=== PATIENT | female | born 1950 | race Caucasian/White ===

== ENCOUNTER 2018-02-25 11:57 | Inpatient (IN) | payer MEDICARE, OTHER ==
[~2018-02-25] VITALS: Ht 154.9 cm; Wt 77.2 kg
[~2018-02-25 11:57] MED LIST: ARIP2TAB3 INH; BLOO-538 SQ; CETI10TA14 PO; DOCU250C14 PO; FLUO15OI TP; FLUT1DIS3 PO; GLYB-214 PO; IBUP-1955 PO; INSU100V7 SQ; LISI1TAB13 PO; MONTELUKAST SOD 10 MG TAB PO; PRAV40TA3 PO; RANI150T8 PO; ZOLP10TA6 PO
--- NOTE | 2018-02-25 12:00 | NUR ---
PT BBRA 39 FROM HOME: GENERALIZED WEAKNESS SINCE THIS AM, PT IS AAOX4, NOT IN RESPIRATORY DISTRESS, BP IS ELAVATED 175/77 DR. DELUCA AWARE, KEPT RESTED AND COMFORTABLE, WILL CONTINUE TO MONITOR.
--- NOTE | 2018-02-25 12:15 | NUR ---
LABS DRAWNED AND SENT TO LAB. AWAITING RESULTS.
[2018-02-25 12:26] LABS: BASOPHILS % (AUTO) 0.6 % (0.0-2.0); EOSINOPHILS % (AUTO) 0.7 % (0.0-6.0); HEMATOCRIT 37 % (33-45); HEMOGLOBIN 12.9 g/dL (11.5-14.8); LYMPHOCYTES # (AUTO) 1.2 /CMM (0.8-4.8); LYMPHOCYTES % (AUTO) 18.8 % (20.0-44.0); MEAN CORPUSCULAR HGB CONC 35 g/dl (31.0-36.0); MEAN CORPUSCULAR VOLUME 86 fL (82-100); MONOCYTES # (AUTO) 0.6 /CMM (0.1-1.30); MONOCYTES % (AUTO) 9.1 % (2.0-12.0); NEUTROPHILS # (AUTO) 4.7 /CMM (1.8-8.9); NEUTROPHILS % (AUTO) 70.8 % (43.0-81.0); PLATELET COUNT (AUTO) 212 /CMM (150-450); WHITE BLOOD COUNT (AUTO) 6.6 K/uL (4.3-11.0)
[2018-02-25] MEDS ORDERED: IV NS 0.9% 500 ML BAG IV ONE (12:30)
[2018-02-25 12:37] LABS: CALCIUM, SERUM 9.1 mg/dL (8.5-10.1); CARBON DIOXIDE 30 mmol/L (21-32); CHLORIDE 105 mmol/L (98-107); CREATININE 0.7 mg/dL (0.6-1.3); GLUCOSE 176 mg/dL (74-106); POTASSIUM 3.2 mmol/L (3.5-5.1); SODIUM SERUM 143 mmol/L (136-145); UREA NITROGEN, BLOOD 13 mg/dL (7-18)
[2018-02-25 12:39] LABS: SERUM AMMONIA 23 umol/L (11-32)
--- NOTE | 2018-02-25 12:41 | NUR ---
PT IS WHEELD TO CT SCAN [facility].
--- NOTE | 2018-02-25 12:41 | NUR ---
URINE SPECIMEN COLLECTED VIA STRAIGHT CATH AND SENT TO LAB.
[2018-02-25 12:43] LABS: ALANINE AMINOTRANSFERASE 43 U/L (12-78); ALBUMIN 3.9 g/dL (3.4-5.0); ALKALINE PHOSPHATASE 97 U/L (46-116); ASPARTATE AMINOTRANSFERASE 19 U/L (15-37); BILIRUBIN,DIRECT 0.2 mg/dL (0.0-0.2); BILIRUBIN,TOTAL 0.8 mg/dL (0.2-1.0); TOTAL PROTEIN, SERUM 7.1 g/dL (6.4-8.2)
[2018-02-25 12:44] LABS: ALCOHOL, BLOOD < 3 mg/dL (0-0)
[2018-02-25 12:44] LABS: APPEARANCE,URINE Slightly Cloudy (CLEAR); BILIRUBIN,URINE Negative (NEGATIVE); BLOOD, URINE Moderate Ery/uL (NEGATIVE); KETONES,URINE Negative (NEGATIVE); LEUKOCYTE ESTERASE ,URINE Negative (NEGATIVE); NITRITE, URINE Negative (NEGATIVE); PROTEIN,URINE Negative (NEGATIVE); UGLUCOSE Negative (NEGATIVE)
[2018-02-25 12:46] LABS: COLOR,URINE Yellow (YELLOW)
[2018-02-25 12:49] LABS: BACTERIA,URINE Few /HPF (None Seen); RBC,URINE 50-80 /HPF (0-2); SQUAMOUS EPITHELIAL CELL,UR Few /HPF (None Seen); URINE AMORPHOUS PHOSPHATES Few /HPF (None Seen); WBC,URINE 0-3 /HPF (0-3)
--- NOTE | 2018-02-25 12:55 | NUR ---
PT IS BACK FROM THE CT SCAN. AWAITING RESULT.
--- NOTE | 2018-02-25 13:46 | NUR ---
PAGED DR CHUNG
--- NOTE | 2018-02-25 15:09 | NUR ---
ROOM CHANGED TO 328-1 M/S
[2018-02-25 16:00] VITALS: BP 174/83
--- NOTE | 2018-02-25 16:01 | NUR ---
REPORT GIVEN TO ARNOLD HARMON FOR JEREMY.
--- NOTE | 2018-02-25 16:15 | NUR ---
MS OUTREACH COORDINATOR NOTE RECEIVED PATIENT VIA GURNEY FROM ER. PATIENT WAS BROUGHT IN DUE TO GENERALIZED WEAKNESS. ALERT AND ORIENTED x2-3 AZERBAIJANI SPEAKING FAMILY AT BEDSIDE. LAST BOWEL MOVEMENT 3 DAYS AGO PER FAMILY. RIGHT HAND IV INTACT AND PATENT NO REDNESS OR SWELLING NOTED. ABLE TO COMMUNICATE NEEDS. CALL LIGHT WITHIN REACH. SAFETY MEASURES IMPLEMENTED. SIDERAILS UP X2 FOR SAFETY. NKA. FULL CODE NO ISOLATION. AWAITING MD ORDERS AT THIS TIME. NOTED WITH SACRAL REDNESS, PHOTO TO BE TAKEN AND PLACED IN CHART. NO FACIAL GRIMACING NOTED FOR PAIN. NO SOB OR DISTRESS NOTED ON ROOM AIR TOLERATING WELL. WILL CONTINUE TO MONITOR THROUGHOUT SHIFT
[2018-02-25] MEDS ORDERED: *INSULIN REGULAR(HUMULIN R)HUM 100 UNIT/ML VIAL SQ PRN (17:30)
[2018-02-25] MEDS ORDERED: Z GUARD REMEDY 2 OZ OINT TP PRN (17:30)
[2018-02-25] MEDS ORDERED: ZOLPIDEM TARTRATE 5 MG TABLET PO PRN (17:30)
[2018-02-25] MEDS ORDERED: ACETAMINOPHEN 325 MG TABLET PO PRN (17:30)
[2018-02-25] MEDS ORDERED: HYDROCODONE/APAP 5/325MG 1 EACH TABLET PO PRN (17:30)
[2018-02-25] MEDS ORDERED: MAG HYDROX/AL HYDROX/SIMETH 30 ML UDC PO PRN (17:30)
[2018-02-25] MEDS ORDERED: DEXTROSE 50%-WATER 50 ML DISP.SYRIN IV PRN (17:30)
[2018-02-25] MEDS ORDERED: MAGNESIUM HYDROXIDE 30 ML UDC PO PRN (17:30)
[2018-02-25] MEDS ORDERED: ONDANSETRON HCL/PF 4 MG/2 ML VIAL IVP PRN (17:30)
[2018-02-25] MEDS: BLOOD SUGAR DIAGNOSTIC 1 EACH STRIP VI SCH ×2 (17:40→21:53)
[2018-02-25] MEDS: IV NS 0.9% 1,000 ML IV PRN (17:42)
--- NOTE | 2018-02-25 18:56 | NUR ---
RN CLOSING NOTE PATIENT RESTING COMFORTABLY AT THIS TIME. NO FACIAL GRIMACING NOTED FOR PAIN. CALL LIGHT WITHIN REACH AT ALL TIMES. NO SOB OR DISTRESS NOTED ON ROOM AIR TOLERATING WELL. IV INTACT AND PATENT NO REDNESS NOTED ON IV FLUIDS AT THIS TIME. ABLE TO COMMUNICATE NEEDS. WILL ENDORSE TO [employer] HEAD COOK NURSE FOR JEREMY
--- NOTE | 2018-02-25 19:15 | NUR ---
RN OPENING NOTES RECEIVED PT SITTING UP IN BED, FAMILY AT BEDSIDE. VERBALLY RESPONSIVE, ALERT AND ORIENTED X 3, NO SOB, BREATHING EVEN AND UNLABORED, IN NO ACUTE DISTRESS AT THIS TIME. ALL PATIENT'S NEEDS ATTENDED TO AT THIS TIME. PT AWARE OF SAFETY NEEDS, PLACED CALL LIGHT WITHIN EASY REACH, BED IN LOW POSITION AND LOCKED IN PLACE. IVF INFUSING WELL ORDERED. WILL CONTINUE TO MONITOR PT.
[2018-02-25 20:38] VITALS: BP 169/88
[2018-02-26] MEDS: CLONIDINE HCL 0.1 MG TABLET PO PRN (00:14)
[2018-02-26] MEDS: INSULIN REGULAR, HUMAN 100 UNIT/ML 3 ML VIAL SQ PRN ×3 (06:45→17:52)
[2018-02-26] MEDS: BLOOD SUGAR DIAGNOSTIC 1 EACH STRIP VI SCH ×4 (06:45→21:02)
--- NOTE | 2018-02-26 06:55 | NUR ---
RN CLOSING NOTES PATIENT ASLEEP BUT EASILY AROUSABLE, NOTED WITH NO ACUTE DISTRESS THROUGHOUT THE SHIFT. IVF INFUSING WELL ORDERED VIA RIGHT WRIST IVP G#20. NOTED PT WITH ONE EPISODE OF PAIN ON LEFT THIGH, OFFERED PAIN MEDICATION BUT PT REFUSED AND VERBALIZED THAT SHE DOES NOT WANT PAIN MEDICATION, OFFERED ICE PACK, AND WITH HELP. PT AGREED AND ALL PATIENT'S NEEDS ATTENDED TO, PLACED CALL LIGHT WITHIN EASY REACH. WILL ENDORSE TO AM SHIFT NURSE FOR CONTINUITY OF CARE.
[2018-02-26 07:05] LABS: BASOPHILS % (AUTO) 0.5 % (0.0-2.0); HEMATOCRIT 33 % (33-45); HEMOGLOBIN 11.7 g/dL (11.5-14.8); LYMPHOCYTES # (AUTO) 1.5 /CMM (0.8-4.8); LYMPHOCYTES % (AUTO) 24.8 % (20.0-44.0); MEAN CORPUSCULAR HGB CONC 36 g/dl (31.0-36.0); MEAN CORPUSCULAR VOLUME 86 fL (82-100); MONOCYTES # (AUTO) 0.7 /CMM (0.1-1.30); MONOCYTES % (AUTO) 11.1 % (2.0-12.0); NEUTROPHILS # (AUTO) 3.9 /CMM (1.8-8.9); NEUTROPHILS % (AUTO) 62.6 % (43.0-81.0); PLATELET COUNT (AUTO) 199 /CMM (150-450); RED BLOOD CELL COUNT(AUTO) 3.79 MIL/uL (4.0-5.2); WHITE BLOOD COUNT (AUTO) 6.2 K/uL (4.3-11.0)
[2018-02-26 07:18] LABS: ALBUMIN 3.5 g/dL (3.4-5.0); CALCIUM, SERUM 8.7 mg/dL (8.5-10.1); CREATININE 0.6 mg/dL (0.6-1.3); MAGNESIUM 1.7 mg/dL (1.8-2.4); PHOSPHORUS 2.7 mg/dL (2.5-4.9); POTASSIUM 3.3 mmol/L (3.5-5.1); TOTAL PROTEIN, SERUM 6.5 g/dL (6.4-8.2)
[2018-02-26 08:00] VITALS: BP 148/79
--- NOTE | 2018-02-26 08:44 | NUR ---
MS RN INITIAL NOTES Patient is awake, sitting up in bed, had breakfast with fair appetite. Appears weak, stable on RA, denies pain. Home medication for recon. will follow up. Maintained safety, will cont to monitor.
[2018-02-26 09:06] LABS: THYROID STIMULATING HORMONE 2.405 uIU/mL (0.358-3.74)
[2018-02-26] MEDS ORDERED: POTASSIUM CHLORIDE 20 MEQ TAB.PRT.SR PO SCH (10:30)
[2018-02-26] MEDS: Magnesium 1GM/D5W 100ML PREMIX 100 ML IV SCH ×2 (11:43→12:46)
[2018-02-26] MEDS ORDERED: POTASSIUM CHLORIDE 20 MEQ TAB.PRT.SR PO ONE (12:00)
[2018-02-26] MEDS ORDERED: DOCUSATE SODIUM 250 MG CAPSULE PO PRN (13:00)
[2018-02-26] MEDS ORDERED: ARIPIPRAZOLE 2 MG TABLET PO SCH (13:00)
[2018-02-26] MEDS ORDERED: [UNRECOGNIZED DRUG - OTHER] PO SCH (13:00)
[2018-02-26] MEDS ORDERED: IBUPROFEN 600 MG TABLET PO PRN (13:00)
[2018-02-26] MEDS ORDERED: ATORVASTATIN 10 MG TABLET PO SCH (13:00)
[2018-02-26] MEDS: cetrizine 10 MG TABLET PO SCH ×3 (13:00→14:21)
--- NOTE | 2018-02-26 13:06 | NUR ---
texted dr. perez for mri approval.
[2018-02-26] MEDS: FLUOCINONIDE 0.05% 15 GM OINT..GM. TP SCH (14:00)
[2018-02-26] MEDS: IV NS 0.9% 1,000 ML IV PRN (14:09)
[2018-02-26] MEDS ORDERED: GADODIAMIDE 5 MMOL/10 ML VIAL IJ ONE (17:37)
--- NOTE | 2018-02-26 18:48 | NUR ---
MS RN CLOSING NOTES Patient is awake, had dinner with good appetite. IVF Infusing-maintained at 75ml/hr. Low potassium, low magnesium today-supplemented as ordered. MRI hip/joint left result pending, denies pain, only when sudden moving per patient. Patient refused abilify medication, per patient she is not taking abilify at home and only give herself insulin lantus if her blood sugar is above 300, at the bedside-aware of the conversation with the nurse, also refused ability for the patient, education provided. Notified Dr. Crawford, discussed insulin dose and ability medication, clarified orders and verified. Faxed information to [facility] for psych consult. Maintained safety, will endorse to oncoming RN for continuity of care.
--- NOTE | 2018-02-26 19:35 | NUR ---
MS/RN OPENING NOTES PT AWAKE, HOB ELEVATED. DAUGHTER AT BEDSIDE. A/OX3. SERBIAN SPEAKING BUT ABLE TO MAKE NEEDS KNOWN. ON ROOM AIR, BREATHING EVEN AND UNLABORED. IN NO ACUTE DISTRESS. DENIES SOB AND PAIN AT THIS TIME. PER DAUGHTER ANUPAM'S REQUEST, DO NOT GIVE PT NARCOTIC MEDS, ONLY TYLENOL AND MOTRIN PLEASE. IV TO RIGHT WRIST PATENT AND INTACT RUNNING NS @75ML/HR. BED IN LOW/LOCKED POSITION WITH CALL LIGHT IN REACH. BILATERAL UPPER SIDE RAILS UP X2. WILL CONTINUE TO MONITOR
[2018-02-26 19:57] VITALS: BP 148/71
[2018-02-26 20:00] VITALS: BP 148/71
[2018-02-26] MEDS: FAMOTIDINE (20 MG) 20 MG TABLET PO SCH (21:01)
[2018-02-26] MEDS: MONTELUKAST SODIUM (10MG) 10 MG TABLET PO SCH (21:01)
[2018-02-26] MEDS: INSULIN GLARGINE, 100 UNIT/ML CARTRIDGE SQ SCH (21:08)
[2018-02-26] MEDS ORDERED: ZOLPIDEM TARTRATE 10 MG TABLET PO PRN (22:00)
[2018-02-26] MEDS ORDERED: INSULIN GLARGINE, 100 UNIT/ML CARTRIDGE SQ PRN (22:00)
[2018-02-27] MEDS: BLOOD SUGAR DIAGNOSTIC 1 EACH STRIP VI SCH ×4 (06:45→22:21)
[2018-02-27] MEDS: INSULIN REGULAR, HUMAN 100 UNIT/ML 3 ML VIAL SQ PRN ×3 (06:46→17:51)
[2018-02-27 06:51] LABS: BASOPHILS % (AUTO) 0.5 % (0.0-2.0); EOSINOPHILS % (AUTO) 1.1 % (0.0-6.0); HEMATOCRIT 35 % (33-45); HEMOGLOBIN 12.1 g/dL (11.5-14.8); LYMPHOCYTES # (AUTO) 1.4 /CMM (0.8-4.8); LYMPHOCYTES % (AUTO) 23.8 % (20.0-44.0); MEAN CORPUSCULAR HGB CONC 35 g/dl (31.0-36.0); MEAN CORPUSCULAR VOLUME 86 fL (82-100); MONOCYTES # (AUTO) 0.6 /CMM (0.1-1.30); MONOCYTES % (AUTO) 9.9 % (2.0-12.0); NEUTROPHILS # (AUTO) 3.7 /CMM (1.8-8.9); NEUTROPHILS % (AUTO) 64.7 % (43.0-81.0); PLATELET COUNT (AUTO) 200 /CMM (150-450); RED BLOOD CELL COUNT(AUTO) 4.02 MIL/uL (4.0-5.2); WHITE BLOOD COUNT (AUTO) 5.8 K/uL (4.3-11.0)
--- NOTE | 2018-02-27 06:53 | NUR ---
MS/RN CLOSING NOTES PT WITH EYES CLOSED. OPENS EYES TO NAME. A/OX3. TAJIK SPEAKING BUT ABLE TO MAKE NEEDS KNOWN. ON ROOM AIR, BREATHING EVEN AND UNLABORED. IN NO ACUTE DISTRESS. DENIES SOB AND PAIN AT THIS TIME. PAIN ONLY UPON MOVEMENT TO LEFT LEG. ELEVATED ON PILLOW. IV TO RIGHT WRIST PATENT AND INTACT RUNNING NS @75ML/HR. BLOOD SUGAR CHECK THIS AM = 155, PT REFUSED INSULIN COVERAGE DESPITE EDUCATION OF RISKS/BENEFITS X3. NO SIGNIFICANT CHANGES OVERNIGHT. ALL NEEDS MET. BED REMAINS IN LOW/LOCKED POSITION WITH CALL LIGHT IN REACH. HOB ELEVATED. BILATERAL UPPER SIDE RAILS UP X2. TURNED/REPOSITIONED Q2H. WILL ENDORSE TO DAY SHIFT RN JEREMY.
[2018-02-27 08:00] VITALS: BP 161/78
--- NOTE | 2018-02-27 08:00 | NUR ---
MS/RN OPENING NOTES PT AWAKE, HOB ELEVATED. A/OX3. PASHTO SPEAKING BUT ABLE TO MAKE NEEDS KNOWN. ON ROOM AIR, BREATHING EVEN AND UNLABORED. IN NO ACUTE DISTRESS. DENIES SOB AND PAIN AT THIS TIME. PER DAUGHTER ANUPAM'S REQUEST, DO NOT GIVE PT NARCOTIC MEDS, ONLY TYLENOL AND MOTRIN PLEASE. IV TO RIGHT WRIST PATENT AND INTACT RUNNING NS @75ML/HR. BED IN LOW/LOCKED POSITION WITH CALL LIGHT IN REACH. BILATERAL UPPER SIDE RAILS UP X2. WILL CONTINUE TO MONITOR
[2018-02-27 08:15] LABS: CALCIUM, SERUM 8.7 mg/dL (8.5-10.1); CREATININE 0.5 mg/dL (0.6-1.3)
[2018-02-27] MEDS: cetrizine 10 MG TABLET PO SCH (08:44)
[2018-02-27] MEDS: FAMOTIDINE (20 MG) 20 MG TABLET PO SCH ×2 (08:44→21:22)
[2018-02-27] MEDS: ATORVASTATIN 10 MG TABLET PO SCH (08:44)
[2018-02-27] MEDS: HYDROCHLOROTHIAZIDE 25 MG TABLET PO SCH (08:47)
[2018-02-27] MEDS: LISINOPRIL (20MG) 20 MG TABLET PO SCH (08:48)
[2018-02-27] MEDS: FLUOCINONIDE 0.05% 15 GM OINT..GM. TP SCH (08:49)
[2018-02-27] MEDS ORDERED: FLUTICASONE/VILANTEROL 1 EACH BLST.W.DEV IH SCH (09:00)
--- NOTE | 2018-02-27 09:25 | NUR ---
WOUND CARE CONSULT: PT PRESENTS WITH BLANCHABLE REDNESS TO SACRAL AREA, PRESENT ON ADMISSION. RECOMMENDATIONS MADE FOR SKIN PROTECTION AND CARE. DISCUSSED WITH NURSING STAFF. VITILIGO NOTED. CURRENT MARITZA SCORE IS 15. WILL SEE PRN. LÓPEZ IN AGREEMENT WITH PLAN OF CARE. Addendum: 02/27/18 at 0964 by KRYS CARTER WNDNU Amended: Links added.
[2018-02-27] MEDS ORDERED: POTASSIUM CHLORIDE 20 MEQ TAB.PRT.SR PO ONE (10:30)
[2018-02-27] MEDS ORDERED: HYDROCODONE/APAP 5/325MG 1 EACH TABLET PO PRN (10:30)
[2018-02-27] MEDS: IV NS 0.9% 1,000 ML IV PRN (14:33)
[2018-02-27 16:00] VITALS: BP 124/65
--- NOTE | 2018-02-27 16:09 | NUR ---
SEEN BY PSYCH CONSULT,DR LEE DUE TO DEPRESSION.PT DENIES DEPRESSION,SI/HI AND REFUSED ANY ANTIDEPRESSANTS EITHER.DR LEE REFUSED TO TALK TO THE CHILDREN SAYING PT IS ALERT AND ORIENTED X4 AND CAN DECIDE FOR HERSELF PER DR LEE.
--- NOTE | 2018-02-27 17:11 | NUR ---
Pt was seen and evaluated by PT Isatu Andrew: left inferior and superior pubic rami nondisplaced fractures Plan - no surgical intervention at this time - PT eval and treat - WBAT, assistive devices may be used if needed - PO/IV analgesics PRN - Follow-up with Dr. Vazquez in 2 weeks
--- NOTE | 2018-02-27 18:00 | NUR ---
PT WAS EVALUATED BY DR LEE AND STATED THAT PT HAS NO S/S OF DEPRESSION AND PT VERBALLY DENIES DEPRESSION WELL.DR LEE REFUSED TO CALL THE FAMILY AND PRESCRIBE ANTIDEPRESSANT PER FAMILY REQUEST SINCE THE PT REFUSED ANTIDEPRESSANTS WELL.
--- NOTE | 2018-02-27 19:00 | NUR ---
PT COMFORTABLY RESTING IN BED SURROUNDED BY HER FAMILY MEMBERS.UPDATED FAMILY ON PT'S CONDITION.DENIES PAIN OR DISTRESS.PT WILL BE FOR PT EVAL TOMORROW.WBAT.CALL LIGHT PLACED WITHIN REACH.
[2018-02-27] MEDS ORDERED: LABETALOL 20 MG/4 ML VIAL ONE (19:12)
--- NOTE | 2018-02-27 19:30 | NUR ---
RECEIVED PATIENT IN BED AWAKE. AO X 3, ABLE TO MAKE NEEDS KNOWN. NO ACUTE DISTRESS NOTED. MONITORED FOR PAIN. IV SITE PATENT, INTACT; IVF INFUSING ORDERED. SAFETY REMINDERS GIVEN. ON LOW BED WITH BILATERAL UPPER SIDE RAILS UP. CALL DIAS WITHIN EASY REACH. WILL CONTINUE TO MONITOR. DAUGHTER AT BEDSIDE.
[2018-02-27 20:00] VITALS: BP 140/65
[2018-02-27] MEDS: IBUPROFEN 600 MG TABLET PO PRN (21:21)
[2018-02-27] MEDS: MONTELUKAST SODIUM (10MG) 10 MG TABLET PO SCH (21:22)
--- NOTE | 2018-02-27 22:21 | NUR ---
PATIENT REFUSED TO EAT SNACK AND REFUSED REGULAR INSULIN. LANTUS WAS GIVEN. NO SYMPTOMS OF HYPER/HYPOGLYCEMIA. WILL CONTINUE TO MONITOR.
[2018-02-27] MEDS: INSULIN GLARGINE, 100 UNIT/ML CARTRIDGE SQ SCH (22:23)
[2018-02-28] MEDS: IV NS 0.9% 1,000 ML IV PRN (05:51)
--- NOTE | 2018-02-28 06:30 | NUR ---
PATIENT ASLEEP, EASILY AROUSABLE. RESPIRATIONS EVEN. NO SIGNS OF PAIN NOTED. DUE MEDS GIVEN WITH NO ASE NOTED. IVF INFUSING ORDERED. NEEDS ATTENDED. KEPT CLEAN, DRY, AND COMFORTABLE. SAFETY PRECAUTIONS AND COMFORT MEASURES IN PLACE. WILL GIVE REPORT TO DAY SHIFT FOR CONTINUITY OF CARE.
[2018-02-28] MEDS: BLOOD SUGAR DIAGNOSTIC 1 EACH STRIP VI SCH ×4 (06:59→21:35)
[2018-02-28 07:18] LABS: BASOPHILS % (AUTO) 0.7 % (0.0-2.0); EOSINOPHILS % (AUTO) 1.2 % (0.0-6.0); HEMATOCRIT 35 % (33-45); LYMPHOCYTES # (AUTO) 1.7 /CMM (0.8-4.8); LYMPHOCYTES % (AUTO) 25.3 % (20.0-44.0); MEAN CORPUSCULAR HGB CONC 35 g/dl (31.0-36.0); MEAN CORPUSCULAR VOLUME 86 fL (82-100); MONOCYTES # (AUTO) 0.6 /CMM (0.1-1.30); MONOCYTES % (AUTO) 9.8 % (2.0-12.0); NEUTROPHILS # (AUTO) 4.1 /CMM (1.8-8.9); PLATELET COUNT (AUTO) 197 /CMM (150-450); RED BLOOD CELL COUNT(AUTO) 4.01 MIL/uL (4.0-5.2); WHITE BLOOD COUNT (AUTO) 6.6 K/uL (4.3-11.0)
[2018-02-28 07:40] LABS: CALCIUM, SERUM 8.7 mg/dL (8.5-10.1); CREATININE 0.5 mg/dL (0.6-1.3); MAGNESIUM 1.9 mg/dL (1.8-2.4); PHOSPHORUS 3.8 mg/dL (2.5-4.9); POTASSIUM 3.3 mmol/L (3.5-5.1)
[2018-02-28 08:00] VITALS: BP 161/90
--- NOTE | 2018-02-28 08:00 | NUR ---
MS/RN OPENING NOTES PT AWAKE, HOB ELEVATED. A/OX3. FAROESE SPEAKING BUT ABLE TO MAKE NEEDS KNOWN. ON ROOM AIR, BREATHING EVEN AND UNLABORED. IN NO ACUTE DISTRESS. DENIES SOB AND PAIN AT THIS TIME. PER DAUGHTER ANUPAM'S REQUEST, DO NOT GIVE PT NARCOTIC MEDS, ONLY TYLENOL AND MOTRIN PLEASE. IV TO RIGHT WRIST PATENT AND INTACT RUNNING NS @75ML/HR. BED IN LOW/LOCKED POSITION WITH CALL LIGHT IN REACH. SEEN BY P.T. AND AMBULATED WITH FWW.NOTIFIED FINANCE ADMINLILY CHA TO F/U WITH FAMILY REGARDING DISCHARGE PLANNING.BILATERAL UPPER SIDE RAILS UP X2. WILL CONTINUE TO MONITOR
[2018-02-28] MEDS: cetrizine 10 MG TABLET PO SCH (08:14)
[2018-02-28] MEDS: FAMOTIDINE (20 MG) 20 MG TABLET PO SCH ×2 (08:14→21:32)
[2018-02-28] MEDS: LISINOPRIL (20MG) 20 MG TABLET PO SCH (08:14)
[2018-02-28] MEDS: CLONIDINE HCL 0.1 MG TABLET PO PRN (08:15)
[2018-02-28] MEDS: HYDROCHLOROTHIAZIDE 25 MG TABLET PO SCH (08:15)
[2018-02-28] MEDS: ATORVASTATIN 10 MG TABLET PO SCH (08:15)
[2018-02-28] MEDS: IBUPROFEN 600 MG TABLET PO PRN ×2 (08:15→21:32)
[2018-02-28] MEDS: FLUOCINONIDE 0.05% 15 GM OINT..GM. TP SCH (08:16)
[2018-02-28] MEDS ORDERED: POTASSIUM CHLORIDE 20 MEQ TAB.PRT.SR PO SCH (11:30)
[2018-02-28] MEDS: INSULIN REGULAR, HUMAN 100 UNIT/ML 3 ML VIAL SQ PRN ×2 (12:35→17:15)
[2018-02-28 16:05] VITALS: BP 138/74
--- NOTE | 2018-02-28 18:32 | NUR ---
PT COMFORTABLY RESTING IN BED SURROUNDED BY HER FAMILY MEMBERS.UPDATED FAMILY ON PT'S CONDITION.JONATHAN CLAYTON SPOKE TO PT'S DAUGHTER,DIONE VIA PHONE AND DISCUSSED PLAN OF CARE WITH PT.PT'S FAMILY AND JONATHAN CLAYTON AGREED TO HAVE PT TX OUTPT REHAB.FAMILY WANTS TO TAKE CARE OF THE PT.DENIES PAIN OR DISTRESS.WBAT.CALL LIGHT PLACED WITHIN REACH.
--- NOTE | 2018-02-28 19:30 | NUR ---
RECEIVED PATIENT IN BED AWAKE. AO X 3, ABLE TO MAKE NEEDS KNOWN. NO ACUTE DISTRESS NOTED. NO SIGNS OF PAIN NOTED. IV SITE PATENT, INTACT; IVF INFUSING ORDERED. SAFETY REMINDERS GIVEN. ON LOW BED WITH BILATERAL UPPER SIDE RAILS UP. CALL DIAS WITHIN EASY REACH. WILL CONTINUE TO MONITOR.
[2018-02-28 20:00] VITALS: BP 151/66
[2018-02-28 20:08] VITALS: BP 151/66
[2018-02-28] MEDS: MONTELUKAST SODIUM (10MG) 10 MG TABLET PO SCH (21:32)
[2018-02-28] MEDS: INSULIN GLARGINE, 100 UNIT/ML CARTRIDGE SQ SCH (21:34)
--- NOTE | 2018-03-01 06:00 | NUR ---
PATIENT ASLEEP, EASILY AROUSABLE. RESPIRATIONS EVEN. NO SIGNS OF PAIN NOTED. NO SYMPTOMS OF HYPER/HYPOGLYCEMIA. NEEDS ATTENDED. KEPT CLEAN, DRY, AND COMFORTABLE. SAFETY PRECAUTIONS AND COMFORT MEASURES IN PLACE. WILL GIVE REPORT TO DAY SHIFT FOR CONTINUITY OF CARE.
[2018-03-01 06:31] LABS: CALCIUM, SERUM 8.4 mg/dL (8.5-10.1); CREATININE 0.5 mg/dL (0.6-1.3); POTASSIUM 3.4 mmol/L (3.5-5.1)
[2018-03-01] MEDS: BLOOD SUGAR DIAGNOSTIC 1 EACH STRIP VI SCH ×3 (06:43→17:30)
--- NOTE | 2018-03-01 07:38 | NUR ---
MS RN OPENING NOTES RECEIVED PT ASLEEP IN BED, EASILY AROUSABLE. HOB ELEVATED. SEEMS COMFORTABLE WITH NO ACUTE SIGNS OF DISTRESS NOTED. ON ROOM AIR, BREATHING EVEN AND UNLABORED. IV ACCESS ON LEFT WRIST INTACT AND PATENT, IVF OF NS @ 755ML/HR INFUSING, NO S/S OF INFILTRATIONS NOTED. SAFETY MEASURES IN PLACE. BED IN LOW LOCKED POSITION WITH SIDE-RAILS UP X2. CALL LIGHT IN REACH. WILL CONTINUE TO MONITOR PT.
[2018-03-01 08:00] VITALS: BP 160/78
[2018-03-01] MEDS: cetrizine 10 MG TABLET PO SCH (08:16)
[2018-03-01] MEDS: FAMOTIDINE (20 MG) 20 MG TABLET PO SCH (08:16)
[2018-03-01] MEDS: DOCUSATE SODIUM 100 MG CAPSULE PO SCH ×2 (08:16→16:23)
[2018-03-01] MEDS: HYDROCHLOROTHIAZIDE 25 MG TABLET PO SCH (08:17)
[2018-03-01] MEDS: ATORVASTATIN 10 MG TABLET PO SCH (08:17)
[2018-03-01] MEDS: LISINOPRIL (20MG) 20 MG TABLET PO SCH (08:17)
[2018-03-01] MEDS: FLUOCINONIDE 0.05% 15 GM OINT..GM. TP SCH (08:23)
[2018-03-01] MEDS ORDERED: POTASSIUM CHLORIDE 20 MEQ TAB.PRT.SR PO ONE (11:30)
[2018-03-01] MEDS: INSULIN REGULAR, HUMAN 100 UNIT/ML 3 ML VIAL SQ PRN (12:32)
--- NOTE | 2018-03-01 13:50 | NUR ---
service center manager Korey informed SW that pts' daughter Gifty is requesting a verification of admission letter. JACOB typed letter and gave it to piano case and bench assembler Korey to give to pt's daughter Gifty, per her request.
--- NOTE | 2018-03-01 15:09 | NUR ---
RN NOTES PATIENT FOR DISCHARGE TO [facility] THIS AFTERNOON, CALLED AND REPORT GIVEN TO NURSE MICHAEL AND STATED THAT PT WILL GO TO RM [facility]. PT'S DAUGHTER VISITED AND AWARE OF PT'S DISCHARGE TO [facility].
[2018-03-01 16:00] VITALS: BP 150/81
[2018-03-01 17:18] VITALS: BP 163/74
[2018-03-01] MEDS: CLONIDINE HCL 0.1 MG TABLET PO PRN (17:18)
--- NOTE | 2018-03-01 17:26 | NUR ---
RN NOTES EMT'S CAME AND CHECKED PT'S BP AND WAS ELEVATED 163/74 MMHG, PRN CLONIDINE 0.1 MG PO GIVEN. CALLED DELROY TO REPORT AND SAID OK. WILL CONTINUE TO MONITOR.
--- NOTE | 2018-03-01 18:06 | NUR ---
MEMORIAL DESIGNER NOTES PT DISCHARGED TO [facility] IN STABLE CONDITION. A/O X4, SAME ABLE TO MAKE NEEDS KNOWN. ALL NEEDS AND CARE ATTENDED WELL. V/S TAKEN AND RECORDED. IV ACCESS REMOVED WITH NO BLEEDING NOTED. PHOTO OF SKIN CONDITION TAKEN AND FILED ON CHART. BELONGINGS CHECKED, COUNTED AND SIGNED FORM. HEALTH TEACHINGS GIVEN TO PT AND VERBALIZED UNDERSTANDING. PT LEFT UNIT @ 1730 VIA GURNEY ACCOMPANIED BY 2 EMT'S. NURSE MODEL PHOTOGRAPHERS' AWARE OF PT'S DISCHARGE.
== END 2018-03-01 17:30 | DRG 552 ==
LOC: ER 11:58 → MED 15:04 → UNDOADMIN 15:04 → MED 15:11 → MEDSG2 02-26 10:34
PROVIDERS: ADMIT Internal Medicine; ATTEND Nurse Practitioner Acute Care
DX: S32.119A Unspecified Zone I fracture of sacrum, initial encounter for closed fracture (principal); S32.592A Other specified fracture of left pubis, initial encounter for closed fracture; E11.9 Type 2 diabetes mellitus without complications; E87.6 Hypokalemia; E78.5 Hyperlipidemia, unspecified; F17.210 Nicotine dependence, cigarettes, uncomplicated; F32.9 Major depressive disorder, single episode, unspecified; L80 Vitiligo; I10 Essential (primary) hypertension; I51.7 Cardiomegaly
CPT/HCPCS: 36415; 70450-TC; 71045-TC; 72170-TC; 73030-TC; 80048-TC; 80053-TC; 80061-TC; 80076-TC; 80305; 81000-TC; 82140-TC; 82962-TC; 83605-TC; 83735-TC; 84100-TC; 84443-TC; 84484-TC; 85025-TC; 87040-TC; 87081-TC; 87086-TC; 93307-TC; 97110-TC; 97116-TC; 97530-TC; A9579; G0378; G0480; J1815; J3475; J3490; J7030; J7040

== ENCOUNTER 2018-08-05 16:22 | Emergency (ER) | payer MEDICARE, OTHER ==
[~2018-08-05] VITALS: Ht 160 cm; Wt 74.8 kg
[~2018-08-05 16:22] MED LIST changes: -GLYB-214 PO; -RANI150T8 PO
--- NOTE | 2018-08-05 16:33 | NUR ---
PT BIBRA FOR CONSTIPATION X 13DAYS, PTTO BED 5, PT AAOX4, PT ON MONITOR, VSS, NAD NOTED, PENDING MD FISHER
[2018-08-05 16:55] LABS: BASOPHILS # (AUTO) 0.1 /CMM (0.0-0.2); BASOPHILS % (AUTO) 0.9 % (0.0-2.0); EOSINOPHILS % (AUTO) 0.1 % (0.0-6.0); HEMATOCRIT 35 % (33-45); HEMOGLOBIN 12.4 g/dL (11.5-14.8); LYMPHOCYTES # (AUTO) 1.4 /CMM (0.8-4.8); LYMPHOCYTES % (AUTO) 20.3 % (20.0-44.0); MEAN CORPUSCULAR HGB CONC 36 g/dl (31.0-36.0); MEAN CORPUSCULAR VOLUME 85 fL (82-100); MONOCYTES # (AUTO) 0.6 /CMM (0.1-1.30); MONOCYTES % (AUTO) 9.5 % (2.0-12.0); NEUTROPHILS # (AUTO) 4.6 /CMM (1.8-8.9); NEUTROPHILS % (AUTO) 69.2 % (43.0-81.0); PLATELET COUNT (AUTO) 242 /CMM (150-450); RED BLOOD CELL COUNT(AUTO) 4.13 MIL/uL (4.0-5.2); WHITE BLOOD COUNT (AUTO) 6.7 K/uL (4.3-11.0)
[2018-08-05] MEDS ORDERED: NA PHOS,M-B/NA PHOS,DI-BA 1 EA ENEMA RC ONE ×2 (17:00→17:10)
[2018-08-05] MEDS ORDERED: IV NS 0.9% 500 ML BAG IV ONE (17:00)
[2018-08-05 17:10] LABS: ALBUMIN 3.7 g/dL (3.4-5.0); BILIRUBIN,DIRECT 0.1 mg/dL (0.0-0.2); BILIRUBIN,TOTAL 0.5 mg/dL (0.2-1.0); CALCIUM, SERUM 8.9 mg/dL (8.5-10.1); CREATININE 0.4 mg/dL (0.6-1.3); POTASSIUM 3.1 mmol/L (3.5-5.1); TOTAL PROTEIN, SERUM 7.2 g/dL (6.4-8.2)
[2018-08-05] MEDS ORDERED: POTASSIUM CHLORIDE 20 MEQ TAB.PRT.SR PO ONE ×2 (17:30→18:27)
--- NOTE | 2018-08-05 18:36 | NUR ---
Patient discharged to home in stable condition. Written and verbal after care instructions given. Patient verbalizes understanding of instruction. IV removed. Catheter intact and site benign. Pressure and 4x4 applied to site. No bleeding noted.
[2018-08-05 18:38] VITALS: BP 182/80
== END 2018-08-05 18:40 | disposition home or self-care (01) ==
LOC: ER 16:25
DX: K64.4 Residual hemorrhoidal skin tags (principal); I10 Essential (primary) hypertension; E11.9 Type 2 diabetes mellitus without complications; Z79.899 Other long term (current) drug therapy; Z79.4 Long term (current) use of insulin
CPT/HCPCS: 36415; 74176; 80048; 80076; 83690; 85025; 85730; 99284; J7040

== ENCOUNTER 2018-09-03 11:33 | Inpatient (IN) | payer MEDICARE, MEDICAID ==
[~2018-09-03] VITALS: Ht 157.5 cm; Wt 69.9 kg
--- NOTE | 2018-09-03 11:40 | NUR ---
[id number] HOME C/O SEVERE LOWER BACK PAIN X TODAY, TO ER BED 1, HOOKED TO MONITOR, CHANGED TO GOWN, PROVIDED W WARM BLANKET, PT AOX3 , NOT IN DISTRESS, DR ELMORE AT BEDSIDE FOR EVAL.
[2018-09-03] MEDS ORDERED: ONDANSETRON HCL/PF 4 MG/2 ML VIAL IVP ONE (12:00)
[2018-09-03] MEDS ORDERED: KETOROLAC TROMETHAMINE INJ 30 MG/ML VIAL IV ONE (12:00)
[2018-09-03] MEDS ORDERED: HYDROMORPHONE INJ 2 MG/ML DISP.SYRIN IV ONE (12:00)
--- NOTE | 2018-09-03 12:01 | NUR ---
WHEELED OUT VIA [facility] FOR CT SCAN.
[2018-09-03] MEDS ORDERED: HYDROMORPHONE 1 MG/1 ML DISP.SYRIN ONE (12:09)
[2018-09-03] MEDS ORDERED: ONDANSETRON HCL/PF 4 MG/2 ML VIAL ONE (12:09)
[2018-09-03] MEDS ORDERED: KETOROLAC TROMETHAMINE 15 MG/ML VIAL ONE (12:09)
[2018-09-03 12:37] LABS: BASOPHILS # (AUTO) 0.1 /CMM (0.0-0.2); BASOPHILS % (AUTO) 0.6 % (0.0-2.0); EOSINOPHILS % (AUTO) 0.1 % (0.0-6.0); HEMATOCRIT 37 % (33-45); HEMOGLOBIN 12.6 g/dL (11.5-14.8); LYMPHOCYTES # (AUTO) 0.8 /CMM (0.8-4.8); LYMPHOCYTES % (AUTO) 9.9 % (20.0-44.0); MEAN CORPUSCULAR HGB CONC 35 g/dl (31.0-36.0); MEAN CORPUSCULAR VOLUME 86 fL (82-100); MONOCYTES # (AUTO) 0.6 /CMM (0.1-1.30); MONOCYTES % (AUTO) 7.4 % (2.0-12.0); NEUTROPHILS # (AUTO) 6.6 /CMM (1.8-8.9); PLATELET COUNT (AUTO) 259 /CMM (150-450); RED BLOOD CELL COUNT(AUTO) 4.23 MIL/uL (4.0-5.2)
[2018-09-03 12:44] LABS: CALCIUM, SERUM 9.1 mg/dL (8.5-10.1); CREATININE 0.6 mg/dL (0.6-1.3); POTASSIUM 3.3 mmol/L (3.5-5.1)
[2018-09-03 12:50] LABS: ALBUMIN 3.9 g/dL (3.4-5.0); BILIRUBIN,DIRECT 0.1 mg/dL (0.0-0.2); BILIRUBIN,TOTAL 0.8 mg/dL (0.2-1.0); TOTAL PROTEIN, SERUM 7.7 g/dL (6.4-8.2)
--- NOTE | 2018-09-03 14:56 | NUR ---
CALL BACK FROM [facility], REGARDING TX
[2018-09-03] MEDS ORDERED: INSU100V7 SQ (15:58)
[2018-09-03] MEDS ORDERED: IBUP-1953 PO (15:58)
[2018-09-03] MEDS ORDERED: LISI1TAB13 PO (15:58)
[2018-09-03] MEDS ORDERED: ZOLP10TA2 PO (15:58)
[2018-09-03] MEDS ORDERED: DOCU-141 PO (15:58)
--- NOTE | 2018-09-03 16:13 | NUR ---
DR TALHA JACOBS'S OFFICE CALLED,SPOKE WITH ANALY, SAID THAT DR PALENCIA IS IN SURGERY AND SHE I NOT ONE OF THEIR PATIENT.
[2018-09-03 18:15] LABS: APPEARANCE,URINE Clear (CLEAR); BILIRUBIN,URINE MODERATE (NEGATIVE); BLOOD, URINE Negative Ery/uL (NEGATIVE); COLOR,URINE Amber (YELLOW); KETONES,URINE 15 (NEGATIVE); LEUKOCYTE ESTERASE ,URINE Negative (NEGATIVE); NITRITE, URINE Negative (NEGATIVE); PROTEIN,URINE 100 mg/dl (NEGATIVE); UGLUCOSE Negative (NEGATIVE)
[2018-09-03 18:42] LABS: BACTERIA,URINE Rare /HPF (None Seen); RBC,URINE NONE SEEN /HPF (0-2); SQUAMOUS EPITHELIAL CELL,UR Few /HPF (None Seen); WBC,URINE NONE SEEN /HPF (0-3)
--- NOTE | 2018-09-03 19:08 | NUR ---
DR KAI SOTO SPINE SURGEON AT BEDSIDE
--- NOTE | 2018-09-03 19:14 | NUR ---
REPORT GIVEN TO MADELEINE BARRETT FOR JEREMY
--- NOTE | 2018-09-03 19:25 | NUR ---
DR BARTON AT THE BED SIDE
--- NOTE | 2018-09-03 19:50 | NUR ---
RESEARCH ASSOCIATE MOLECULAR BIOLOGY AT THE BED SIDE
[2018-09-03] MEDS ORDERED: MORPHINE SULFATE INJ 2 MG/ML DISP.SYRIN IV STA (20:09)
[2018-09-03 20:28] LABS: MAGNESIUM 1.7 mg/dL (1.8-2.4)
[2018-09-03] MEDS ORDERED: IBUPROFEN 400 MG TABLET PO PRN (20:30)
[2018-09-03] MEDS ORDERED: Medication Not On Formulary EA (Lisinopril/Hydrochlorothiazide (Lisinopril-Hctz 20-25 Mg PO SCH (20:30)
[2018-09-03] MEDS ORDERED: ONDANSETRON HCL/PF 8 MG in IV D5W 50 ML IV PRN (20:30)
--- NOTE | 2018-09-03 20:50 | NUR ---
PER GLUELINE WORKER CAMILO, MRI MACHINE CURRENLTY DOWN. SOONEST TIME TO GET MRI WILL BE 0800 TOMORROW. ATTEMPTED TO CONTACT TO INFORM DR. LIM, WILL FOLLOW UP
[2018-09-03 20:54] LABS: THYROID STIMULATING HORMONE 3.164 uIU/mL (0.358-3.74)
--- NOTE | 2018-09-03 21:14 | NUR ---
FAMILY DECIDED THAT THEY WANT TO STAY IN [place] AT THIS TIME, PAGED DR LIM, LEFT VOICEMAIL.
--- NOTE | 2018-09-03 21:38 | NUR ---
Patient is resting comfortably in bed with eyes closed. Easily aroused. VSS multiple attempts done to reach dr. Hines , still awaiting for his call back.
--- NOTE | 2018-09-03 21:58 | NUR ---
PAGED DR. LIM, NO ANSWER. WILL FOLLOW UP
--- NOTE | 2018-09-03 22:11 | NUR ---
lester hewitt [phone]
--- NOTE | 2018-09-03 22:50 | NUR ---
PER NURSING SUP RICKEY PT CYNDI TO BE ADMITTED UNDER DR. LIM
--- NOTE | 2018-09-03 22:58 | NUR ---
Patient is resting comfortably in bed with eyes closed. Easily aroused. VSS
--- NOTE | 2018-09-03 23:01 | NUR ---
CT SCAN CD IS PLACED IN THE CHART
--- NOTE | 2018-09-03 23:29 | NUR ---
MORPHINE WAS NOT GVENAS MRI WAS CANCELLED AND POSPONED TO [facility] REPORT GIVEN TO NELLY ON THIRD FLOOR
--- NOTE | 2018-09-03 23:49 | NUR ---
PT WAS TRANSFERRED TO [facility]- IN STABLE CONDITION UNDER ACLS PROTOCOL.
--- NOTE | 2018-09-03 23:50 | NUR ---
SOCIOLOGY RESEARCH ASSISTANTSOFTWARE SALES MANAGER NOTES Patient came to unit from ER via gurney. Patient is alert, oriented x 3. Breathing even and unlabored. Not in any distress, on O2 at 2LPM via nasal cannula. Vital signs taken and recorded. Skin assessment done. Skin is intact. Oriented to call light- placed within reach. Belongings checked by ANTONIO Laws. Safety measures in place; bed in low, locked position. Will continue to monitor accordingly
[2018-09-04] VITALS (7 sets, daily range): BP systolic 143–166; BP diastolic 65–91
[2018-09-04] MEDS: HYDROMORPHONE 1 MG/1 ML DISP.SYRIN IV PRN ×4 (00:03→19:45)
--- NOTE | 2018-09-04 00:04 | NUR ---
RN NOTES Tele monitor in place, current reading is sinus rhythm 75. Patient c/o low back pain 8/, dilaudid 1mg given as ordered. Will continue to monitor accordingly
[2018-09-04 06:30] LABS: BASOPHILS % (AUTO) 0.4 % (0.0-2.0); EOSINOPHILS % (AUTO) 0.2 % (0.0-6.0); HEMATOCRIT 34 % (33-45); HEMOGLOBIN 11.6 g/dL (11.5-14.8); LYMPHOCYTES # (AUTO) 1.6 /CMM (0.8-4.8); LYMPHOCYTES % (AUTO) 23.4 % (20.0-44.0); MEAN CORPUSCULAR HGB CONC 35 g/dl (31.0-36.0); MEAN CORPUSCULAR VOLUME 86 fL (82-100); MONOCYTES # (AUTO) 0.7 /CMM (0.1-1.30); MONOCYTES % (AUTO) 9.9 % (2.0-12.0); NEUTROPHILS # (AUTO) 4.4 /CMM (1.8-8.9); NEUTROPHILS % (AUTO) 66.1 % (43.0-81.0); PLATELET COUNT (AUTO) 233 /CMM (150-450); RED BLOOD CELL COUNT(AUTO) 3.92 MIL/uL (4.0-5.2); WHITE BLOOD COUNT (AUTO) 6.7 K/uL (4.3-11.0)
--- NOTE | 2018-09-04 06:47 | NUR ---
OR RN CLOSING NOTES Patient sleeping in bed, easily arousable. Breathing even and unlabored. Not in any distress. On tele monitor- sinus rhythm 84. No complaints of pain or discomfort at this time. Safety measures in place; call light within reach, bed in low, locked position. Will endorse JEREMY to oncoming RN
[2018-09-04 06:49] LABS: CALCIUM, SERUM 8.8 mg/dL (8.5-10.1); CREATININE 0.5 mg/dL (0.6-1.3); POTASSIUM 3.2 mmol/L (3.5-5.1)
[2018-09-04 06:52] LABS: ALBUMIN 3.5 g/dL (3.4-5.0); BILIRUBIN,TOTAL 0.7 mg/dL (0.2-1.0); TOTAL PROTEIN, SERUM 6.8 g/dL (6.4-8.2)
--- NOTE | 2018-09-04 07:30 | NUR ---
ASSEMBLY MACHINE TENDER NOTES RECEIVED PT IN BED, ASLEEP, RESPIRATIONS NORMAL AND NOT LABORED, NO SIGN OF PAIN OR DISCOMFORT, EASY TO AROUSE, CALL LIGHT WITHIN REACH, KEPT WARM AND COMFORTABLE IN BED.
[2018-09-04] MEDS: LISINOPRIL (20MG) 20 MG TABLET PO SCH (09:37)
[2018-09-04] MEDS: DOCUSATE SODIUM 250 MG CAPSULE PO SCH (09:38)
[2018-09-04] MEDS: HYDROCHLOROTHIAZIDE 25 MG TABLET PO SCH (09:38)
[2018-09-04] MEDS: BLOOD SUGAR DIAGNOSTIC 1 EACH STRIP MC SCH ×3 (10:01→17:19)
[2018-09-04] MEDS ORDERED: POTASSIUM CHLORIDE 20 MEQ TAB.PRT.SR PO SCH (11:00)
--- NOTE | 2018-09-04 12:30 | NUR ---
CHAUFFEUR NOTES PT IN BED, PAIN MEDS GIVEN FOR PAIN MANAGEMENT, CALLED OFFICE OF DR. LIM TO CLARIFY ORDERS, CALLED MD AND LEFT MESSAGE, AWAITING CALL BACK, PT COMPLETED MRI, TOLERATED PROCEDURE WELL, AWAITING RESULT, KEPT PT COMFORTABLE.
[2018-09-04] MEDS ORDERED: DEXTROSE 50%-WATER 50 ML DISP.SYRIN IV PRN (18:00)
[2018-09-04] MEDS: IBUPROFEN 600 MG TABLET PO PRN (18:48)
--- NOTE | 2018-09-04 19:00 | NUR ---
RN MS NOTES PT IN BED, AWAKE, ALERT AND ORIENTED, NOT IN DISTRESS, PAIN MEDS GIVEN FOR PAIN MANAGEMENT, TURNED AND REPOSITIONED Q2 HOURS, RECEIVED CALL BACK FROM DR. LIM FOR MED ORDERS, NOTED AND CARRIED OUT, FAMILY VISITED, PLAN OF CARE DISCUSSED WITH DTNicole PARHAM, VERBALIZED UNDERSTANDING, PM CARE PROVIDED.
--- NOTE | 2018-09-04 20:35 | NUR ---
RECIEVED ALERT AND ORIENTATED SPEECH CLEAR C/O LOWER BACK PAIN MEDICATED AND EFFECTIVE FOR PAIN RELIEF REVIEWED THE CALL LIGHT WITH THE PATIENT
[2018-09-04] MEDS: BLOOD SUGAR DIAGNOSTIC 1 EACH STRIP VI SCH (21:24)
[2018-09-04] MEDS: INSULIN GLARGINE, 100 UNIT/ML CARTRIDGE SQ SCH (21:26)
[2018-09-04] MEDS: INSULIN REGULAR, HUMAN 100 UNIT/ML 3 ML VIAL SQ PRN (21:28)
[2018-09-04] MEDS ORDERED: POTASSIUM CHLORIDE 20 MEQ TAB.PRT.SR PO ONE (22:30)
[2018-09-04] MEDS: PANTOPRAZOLE 40 MG TABLET.DR PO SCH (23:07)
[2018-09-05] MEDS: HYDROMORPHONE 1 MG/1 ML DISP.SYRIN IV PRN ×4 (02:17→22:14)
--- NOTE | 2018-09-05 05:48 | NUR ---
ENDING NOTES: ALERT AND ORIENTATED. VERBALIZES HER NEEDS. MEDICATED X2 FOR BACK PAIN WITH DILAUDID AND EFFECTIVE. GOOD ABOUT BEING REPOSITIONED TO THE RIGHT SIDE. EXPLAINED TO HER THE REASON, AND ABOUT PRESSURE SORES.
[2018-09-05 06:23] LABS: BASOPHILS % (AUTO) 0.5 % (0.0-2.0); EOSINOPHILS % (AUTO) 0.1 % (0.0-6.0); HEMATOCRIT 37 % (33-45); HEMOGLOBIN 12.7 g/dL (11.5-14.8); LYMPHOCYTES # (AUTO) 1.6 /CMM (0.8-4.8); LYMPHOCYTES % (AUTO) 20.8 % (20.0-44.0); MEAN CORPUSCULAR HGB CONC 35 g/dl (31.0-36.0); MEAN CORPUSCULAR VOLUME 85 fL (82-100); MONOCYTES # (AUTO) 0.8 /CMM (0.1-1.30); MONOCYTES % (AUTO) 10.1 % (2.0-12.0); NEUTROPHILS # (AUTO) 5.3 /CMM (1.8-8.9); NEUTROPHILS % (AUTO) 68.5 % (43.0-81.0); PLATELET COUNT (AUTO) 256 /CMM (150-450); RED BLOOD CELL COUNT(AUTO) 4.29 MIL/uL (4.0-5.2); WHITE BLOOD COUNT (AUTO) 7.8 K/uL (4.3-11.0)
[2018-09-05] MEDS: BLOOD SUGAR DIAGNOSTIC 1 EACH STRIP VI SCH ×4 (06:41→22:13)
[2018-09-05] MEDS: INSULIN REGULAR, HUMAN 100 UNIT/ML 3 ML VIAL SQ PRN ×3 (06:46→19:53)
[2018-09-05 06:59] LABS: ALBUMIN 3.7 g/dL (3.4-5.0); BILIRUBIN,TOTAL 0.6 mg/dL (0.2-1.0); CALCIUM, SERUM 9.3 mg/dL (8.5-10.1); CREATININE 0.6 mg/dL (0.6-1.3); MAGNESIUM 1.9 mg/dL (1.8-2.4); PHOSPHORUS 3.3 mg/dL (2.5-4.9); POTASSIUM 3.9 mmol/L (3.5-5.1); TOTAL PROTEIN, SERUM 7.4 g/dL (6.4-8.2)
[2018-09-05 08:00] VITALS: BP 160/79
[2018-09-05] MEDS ORDERED: MAGNESIUM HYDROXIDE 30 ML UDC PO PRN (08:00)
--- NOTE | 2018-09-05 08:00 | NUR ---
MS RN OPENING NOTES Received Patient asleep and resting in bed. A/O x 4. VS stable with no acute distress. Breathing even and unlabored on room air with no respiratory distress. Patient states tolerable pain. Will continue to monitor. 20g PIV on RAC clean, dry, intact and flushing well. Safety precautions in place. Bed locked and set to lowest position with side rails x 2 up. All needs rendered at this time. Will continue to monitor.
[2018-09-05] MEDS: HYDROCHLOROTHIAZIDE 25 MG TABLET PO SCH (09:02)
[2018-09-05] MEDS: PANTOPRAZOLE 40 MG TABLET.DR PO SCH (09:02)
[2018-09-05] MEDS: DOCUSATE SODIUM 250 MG CAPSULE PO SCH (09:02)
[2018-09-05] MEDS: LISINOPRIL (20MG) 20 MG TABLET PO SCH (09:03)
[2018-09-05] MEDS ORDERED: CLONIDINE HCL 0.1MG/24H PTWK 1 EA PATCH TD SCH (10:30)
[2018-09-05] MEDS: CALCITONIN,SALMON,SYNTHETIC 3.7 ML SPRAY.PUMP NS SCH (12:28)
[2018-09-05] MEDS: SOD FERRIC GLUC 125 MG in IV NS 0.9% 100 ML IV SCH (13:44)
[2018-09-05 16:00] VITALS: BP 134/62
--- NOTE | 2018-09-05 16:25 | NUR ---
Met with patient and spouse at bedside, patient is alert and pleasant, speaks Maltese.Recently discharged from [facility] and went home. She lives at home with spouse in a single level dwelling.States she has worsening back pain and BLE weakness that limits her mobility. She own a walker, wheelchair and shower chair.She is currently on service with homehealth but family does not remember the name and contact info. Has [facility] caregiver Sunday to Sunday 10am-7pm.Patient is requesting [place] [facility] when discharge. Addendum: 09/05/18 at 2007 by DANIEL ADAMS RN Amended: Links added.
--- NOTE | 2018-09-05 16:50 | NUR ---
MS RN NOTES Obtained consents for THORACIC T10 KYPHOPLASTY from Ankur (). Consents placed in chart.
--- NOTE | 2018-09-05 19:30 | NUR ---
RECEIVED PATIENT IN BED AWAKE. AO X 3, ABLE TO MAKE NEEDS KNOWN. NO ACUTE DISTRESS NOTED. MONITORED FOR PAIN. IV SITE PATENT, INTACT; FLUSHED. SAFETY REMINDERS GIVEN. ON LOW BED WITH BILATERAL UPPER SIDE RAILS UP. CALL DIAS WITHIN EASY REACH. WILL CONTINUE TO MONITOR.
[2018-09-05 20:00] VITALS: BP 141/67
--- NOTE | 2018-09-05 20:01 | NUR ---
MS RN CLOSING NOTES Patient resting in bed. A/O x 4. VS stable with no acute distress. Breathing even and unlabored on 2LPM via NC with no respiratory distress. Patient states tolerable pain. Will endorse to oncoming shift. 20g PIV on RAC clean, dry, intact and flushing well. Safety precautions in place. Bed locked and set to lowest position with side rails x 2 up. All needs rendered at this time. Will endorse plan of care to oncoming shift.
[2018-09-05] MEDS: IBUPROFEN 600 MG TABLET PO PRN (20:24)
[2018-09-05] MEDS: INSULIN GLARGINE, 100 UNIT/ML CARTRIDGE SQ SCH (22:00)
--- NOTE | 2018-09-05 22:23 | NUR ---
PATIENT REFUSED SNACK. PATIENT WILL BE NPO PAST MIDNIGHT. LANTUS NOT GIVEN.
[2018-09-06] MEDS: HYDROMORPHONE 1 MG/1 ML DISP.SYRIN IV PRN ×2 (03:18→21:58)
--- NOTE | 2018-09-06 06:00 | NUR ---
PATIENT ASLEEP, EASILY AROUSABLE. RESPIRATIONS EVEN. NO SIGNS OF PAIN NOTED. NO SYMPTOMS OF HYPER/HYPOGLYCEMIA. NPO SINCE MIDNIGHT. NEEDS ATTENDED. KEPT CLEAN, DRY, AND COMFORTABLE. SAFETY PRECAUTIONS AND COMFORT MEASURES IN PLACE. WILL GIVE REPORT TO TO DAY SHIFT FOR CONTINUITY OF CARE.
[2018-09-06] MEDS: BLOOD SUGAR DIAGNOSTIC 1 EACH STRIP VI SCH ×4 (06:42→21:49)
[2018-09-06] MEDS: PANTOPRAZOLE 40 MG TABLET.DR PO SCH (07:30)
--- NOTE | 2018-09-06 07:35 | NUR ---
MS RN OPENING NOTES RECEIVED PT IN BED, INTERMITTENTLY DOZING OFF, EASILY AROUSED, A/O X3-4. TAJIK SPEAKING AND CAN UNDERSTAND AND SPEAK A LITTLE NEPALI. PT TOLERATING RA, WITH NO ACUTE RESPIRATORY DISTRESS NOTED. PT STATED SHE'S IN PAIN BUT TOLERABLE AT THIS TIME. PIV TO RAC G20, FLUSHED WITH NS, INTACT AND OPERATIONAL. PT DENIES ANY QUESTIONS OR CONCERNS AT THIS TIME. PT REMINDED FOR SCHEDULED THORACIC 10 KYPHOPLASTY SURGERY THIS MORNING. PT ON NPO. PT KEPT COMFORTABLE. PT'S BED IN LOWEST, LOCKED POSITION WITH SR X3. CALL LIGHT KEPT WITHIN REACH. WILL CONTINUE PLAN OF CARE.
[2018-09-06 08:00] VITALS: BP 131/69
[2018-09-06] MEDS ORDERED: LIDOCAINE 1%-EPI 1:100,000 20 ML VIAL ONE (08:11)
[2018-09-06] MEDS ORDERED: BUPIVACAINE 0.25% 75 MG/30 ML VIAL ONE (08:11)
--- NOTE | 2018-09-06 08:20 | NUR ---
MS RN NOTES PT WITH THE FAMILY LEFT THE UNIT TO 2ND FLOOR/OR VIA BED WITH 2 NURSE ASSIST. CONSENT SIGNED BY . BEFORE [facility] THE PT EARLIER, OR NURSE STATED PROCEDURE CONSENT NEEDS TO BE SIGNED BY PT. RN PRINTED PROCEDURE CONSENT AND OR NURSE SUDDENLY STATED "IT'S OKAY". GAB/BERTRAM AWARE. PT AND FAMILY LEFT THE UNIT AT 0820. PT/INR AND CHEM7 ORDERED STAT WELLL PER SURGEON.
[2018-09-06] MEDS ORDERED: ANESTHESIA TRAY IN PYXIS 1 EA TRAY MC ONE (08:25)
[2018-09-06] MEDS ORDERED: IOHEXOL 50 ML IV ONE (08:26)
[2018-09-06] MEDS: LISINOPRIL (20MG) 20 MG TABLET PO SCH (08:36)
[2018-09-06] MEDS: CALCITONIN,SALMON,SYNTHETIC 3.7 ML SPRAY.PUMP NS SCH (08:36)
[2018-09-06] MEDS: HYDROCHLOROTHIAZIDE 25 MG TABLET PO SCH (08:36)
[2018-09-06] MEDS: DOCUSATE SODIUM 250 MG CAPSULE PO SCH (08:36)
[2018-09-06] MEDS ORDERED: MIDAZOLAM HCL 2 MG/2ML VIAL ONE (08:40)
[2018-09-06] MEDS ORDERED: HYDROMORPHONE INJ 2 MG/ML DISP.SYRIN ONE (08:40)
[2018-09-06] MEDS ORDERED: ROCURONIUM BROMIDE 50 MG/5 ML ONE (08:41)
[2018-09-06 12:20] VITALS: BP 129/61
[2018-09-06 12:35] VITALS: BP 137/66
[2018-09-06 12:50] VITALS: BP 137/68
--- NOTE | 2018-09-06 12:58 | NUR ---
MS RN NOTES PT CAME BACK FROM OR AT 1220. VITALS RECORDED AND MONITORED. ORDERS PLACED AND CARRIED OUT. WILL CONTINUE TO MONITOR.
[2018-09-06] MEDS: SOD FERRIC GLUC 125 MG in IV NS 0.9% 100 ML IV SCH (14:21)
--- NOTE | 2018-09-06 15:23 | NUR ---
MS RN NOTES MONITORED PT'S VITALS. /RAPHAEL MADE AWARE. ONE TIME STAT ORDER OF METOPROLOL AND KCL 20MEQS ORDERED. PLACED AND CARRIED OUT. WILL CONTINUE TO MONITOR PT AGAIN.
[2018-09-06] MEDS ORDERED: METOPROLOL TARTRATE 50 MG TABLET PO STA (15:28)
[2018-09-06] MEDS ORDERED: POTASSIUM CHLORIDE 20 MEQ TAB.PRT.SR PO ONE (15:30)
[2018-09-06 16:00] VITALS: BP 113/58
--- NOTE | 2018-09-06 16:22 | NUR ---
MS RN NOTES /RAPHAEL CALLED AND UPDATED REGARDING BP AND HR OF PT. HR WENT DOWN TO 96-[address] 106-115 BPM. ADDED METOPROLOL 50MG BID SCHEDULED. PLACED AND CARRIED UOT. TO CONTINUE TO MONITOR THE PT. CN/MADE AWARE OR ORDERS WELL.
--- NOTE | 2018-09-06 17:10 | NUR ---
MS RN NOTES RECEIVED A CALL FROM THE SURGEON. RN GAVE UPDATE FOR PT'S CONDITION REGARDING SPISODE OF TACHYCARDIA S/P SURGERY. SURGEON ORDERED BLE VENOUS DUPLEX US TO R/O DVT STAT. PLACED AND CARRIED OUT ORDER.
[2018-09-06] MEDS: INSULIN REGULAR, HUMAN 100 UNIT/ML 3 ML VIAL SQ PRN (17:17)
[2018-09-06] MEDS: ANCEF 1 GM/50 ML D5W IV SCH ×2 (18:13)
--- NOTE | 2018-09-06 18:36 | NUR ---
MS RN CLOSING NOTES PT IN BED, INTERMITTENTLY DOZING OFF, EASILY AROUSED, A/O X3-4. WELSH SPEAKING AND CAN UNDERSTAND AND SPEAK A LITTLE MALAYSIAN. PT TOLERATING RA, WITH NO ACUTE RESPIRATORY DISTRESS NOTED. PIV TO LEFT WRIST G18 AND RAC G20, BOTH FLUSHED WITH NS, INTACT AND OPERATIONAL. ALL NEEDS AND CARE PROVIDED. PT KEPT COMFORTABLE. PT'S BED IN LOWEST, LOCKED POSITION WITH SR X3. CALL LIGHT KEPT WITHIN REACH. WILL ENDORSE TO INCOMING NIGHT NURSE FOR JEREMY.
--- NOTE | 2018-09-06 19:25 | NUR ---
RN OPEN NOTES RECEIVED PATIENT AWAKE IN BED WITH FAMILY AT BEDSIDE. A/OX4. NO SIGNS OF DISTRESS OR DISCOMFORT. BREATHING EVEN AND UNLABORED. IV ACCESS IN L WRIST AND RAC WITH NS INFUSING, PATENT AND INTACT, NO SIGNS OF REDNESS OR INFILTRATION. BED IN LOW LOCKED POSITION WITH SIDE RAILS X2. CALL LIGHT WITHIN REACH. WILL CONTINUE TO MONITOR.
[2018-09-06 20:00] VITALS: BP 137/65
[2018-09-06] MEDS: INSULIN GLARGINE, 100 UNIT/ML CARTRIDGE SQ SCH (21:50)
[2018-09-06] MEDS: *INSULIN REGULAR(HUMULIN R)HUM 100 UNIT/ML VIAL SQ PRN (21:56)
--- NOTE | 2018-09-06 21:58 | NUR ---
RN NOTES ADMINISTERED DILAUDID 1MG ORDERED AT PATIENT REQUEST FOR 08/28 BACK PAIN. VSS. WILL CONTINUE TO MONITOR.
[2018-09-06] MEDS: METOPROLOL TARTRATE 50 MG TABLET PO SCH (21:59)
[2018-09-07] MEDS: ANCEF 1 GM/50 ML D5W IV SCH ×2 (02:39)
[2018-09-07] MEDS: BLOOD SUGAR DIAGNOSTIC 1 EACH STRIP VI SCH ×4 (06:31→22:07)
--- NOTE | 2018-09-07 07:20 | NUR ---
MS RN OPENING NOTES RECEIVED PT IN BED, INTERMITTENTLY DOZING OFF, EASILY AROUSED, A/O X3-4. PORTUGUESE SPEAKING AND CAN UNDERSTAND AND SPEAK A LITTLE POLISH. PT TOLERATING RA, WITH NO ACUTE RESPIRATORY DISTRESS NOTED. PT STATED SHE'S IN PAIN BUT TOLERABLE AT THIS TIME. PIV TO RAC G20 AND LEFT WRIST G18 SL, FLUSHED WITH NS, INTACT AND OPERATIONAL. PT DENIES ANY QUESTIONS OR CONCERNS AT THIS TIME. PT KEPT COMFORTABLE. PT'S BED IN LOWEST, LOCKED POSITION WITH SR X3. CALL LIGHT KEPT WITHIN REACH. WILL CONTINUE PLAN OF CARE.
--- NOTE | 2018-09-07 07:32 | NUR ---
RN CLOSING NOTES PATIENT AWAKE IN BED. A/OX4. NO SIGNS OF DISTRESS OR DISCOMFORT. BREATHING EVEN AND UNLABORED. IV ACCESS IN L WRIST AND RAC , PATENT AND INTACT, NO SIGNS OF REDNESS OR INFILTRATION. ALL NEEDS MET. NO SIGNIFICATN CHANGES THROUGH THE NIGHT. PATIENT REPOSITIONED Q2H AND PRN. BED IN LOW LOCKED POSITION WITH SIDE RAILS X2. CALL LIGHT WITHIN REACH. ENDORSED TO AM SHIFT FOR JEREMY. .
[2018-09-07] MEDS: PANTOPRAZOLE 40 MG TABLET.DR PO SCH (08:06)
[2018-09-07 08:38] VITALS: BP 141/65
[2018-09-07] MEDS: HYDROCHLOROTHIAZIDE 25 MG TABLET PO SCH (08:44)
[2018-09-07] MEDS: DOCUSATE SODIUM 250 MG CAPSULE PO SCH (08:44)
[2018-09-07] MEDS: METOPROLOL TARTRATE 50 MG TABLET PO SCH ×2 (08:44→22:19)
[2018-09-07] MEDS: LISINOPRIL (20MG) 20 MG TABLET PO SCH (08:45)
[2018-09-07] MEDS: HYDROMORPHONE 1 MG/1 ML DISP.SYRIN IV PRN ×2 (08:50→20:55)
[2018-09-07] MEDS: CALCITONIN,SALMON,SYNTHETIC 3.7 ML SPRAY.PUMP NS SCH (09:27)
[2018-09-07] MEDS: INSULIN REGULAR, HUMAN 100 UNIT/ML 3 ML VIAL SQ PRN ×2 (12:04→17:04)
[2018-09-07] MEDS: SOD FERRIC GLUC 125 MG in IV NS 0.9% 100 ML IV SCH (14:30)
[2018-09-07 15:53] VITALS: BP 139/72
[2018-09-07] MEDS ORDERED: DOCUSATE SODIUM 100 MG CAPSULE PO SCH (17:30)
--- NOTE | 2018-09-07 18:28 | NUR ---
MS RN CLOSING NOTES PT IN BED, INTERMITTENTLY DOZING OFF, EASILY AROUSED, A/O X3-4. PT TOLERATING RA, WITH NO ACUTE RESPIRATORY DISTRESS NOTED. ON CONTINUOUS OXYGEN SATURATION MONITORING. PT DENIES ANY PAIN OR DISCOMFORT AT THIS TIME. PIV RFA G20 SL, FLUSHED WITH NS, INTACT AND OPERATIONAL. PT DENIES ANY QUESTIONS OR CONCERNS AT THIS TIME. PT KEPT COMFORTABLE. PT'S BED IN LOWEST, LOCKED POSITION WITH SR X3. CALL LIGHT KEPT WITHIN REACH. WILL ENDORSE TO INCOMING NIGHT NURSE FOR JEREMY.
--- NOTE | 2018-09-07 19:15 | NUR ---
RN INITIAL NOTES; RECEIVED REPORT FROM MARIBELL BARRETT. PT IN BED, AWAKE, A/O X3, ON RA RESPIRATIONS EVENA ND UNLABORED. CONNECTED TO SPO2 MONITOR HR 69 SPO2 94%. MET WITH PT'S FAMILY AT BED SIDE, EXPLAINED AND DISCUSSED PLAN OF CARE. PER REPORT PT WORKED WITH PT TODAY, ABLE TO AMBULATE TO THE BATHROOM WITH MODE ASSIST USING WALKER. S/P T10 BILATERAL TRANSPEDICULAR KYPHOPLASTY ON 09/06/18. DRESSING IN PLACED C/D/I. PT USES BRACE WHEN UPRIGHT OR OUT OF BED PER MD ORDER. WILL UTILIZE LOG ROLL TECHNIQUE WHEN MOVING PT. MOM ADMINISTER FOR NO BM X7DAYS, PT ON COLACE DAILY. IV ACCESS PATENT AND FLUSHING WELL, ON HL. SAFETY PRECAUTIONS FOR FALL INITIATED, CALL LIGHT IN REACH, WILL CONTINUE MONITORING PT.
--- NOTE | 2018-09-07 19:15 | NUR ---
ARNOLD INITIAL NOTES; RECEIVED REPORT FROM MARIBELL BARRETT. PT IN BED, AWAKE, A/O X3, ON RA RESPIRATIONS EVENA ND UNLABORED. CONNECTED TO SPO2 MONITOR HR 69 SPO2 94%. MET WITH PT'S FAMILY AT BED SIDE, EXPLAINED AND DISCUSSED PLAN OF CARE. PER REPORT PT WORKED WITH PT TODAY, ABLE TO AMBULATE TO THE BATHROOM WITH MODE ASSIST USING WALKER. S/P T10 BILATERAL TRANSPEDICULAR KYPHOPLASTY ON 09/07. DRESSING IN PLACED C/D/I. PT USES BRACE WHEN UPRIGHT OR OUT OF BED PER MD ORDER. WILL UTILIZE LOG ROLL TECHNIQUE WHEN MOVING PT. MOM ADMINISTER FOR NO BM X7DAYS, PT ON COLACE DAILY. IV ACCESS PATENT AND FLUSHING WELL, ON HL. SAFETY PRECAUTIONS FOR FALL INITIATED, CALL LIGHT IN REACH, WILL CONTINUE MONITORING PT. Addendum: 09/07/18 at 2254 by MANJIT RODRIGUEZ RN correction of entry: surgery taken 09/06/18
[2018-09-07 20:00] VITALS: BP 133/65
[2018-09-07 20:27] VITALS: BP 133/65
--- NOTE | 2018-09-07 20:56 | NUR ---
PRN DILAUDID: PT C/O UPPER AND LOWER BACK PAIN 09/28 REQUESTING FOR MEDICATION, PRN DILAUDID 1 MG IVP ADMINISTERED TO PT AT THIS TIME. PLACED ON 2L OXYGEN VIA NC. WILL CONTINUE TO MONITOR AND REASSESS PT.
--- NOTE | 2018-09-07 21:17 | NUR ---
RN NOTES: PT'S BS 209, SCHEDULE LANTUS 60 UNITS, PT UNCOMFORTABLE RECEIVING BECAUSE PER PT ITS TOO MUCH, SHE CLAIMED HER SUGAR IS USUALLY 300-400 AT HOME THAT'S WHY SHE'S GETTING 60UNITS OF LANTUS. PT'S GLUCOSE TREND BEEN 190-200'S. CONTACTED DR LIM EXCHANGE BUT UNABLE TO ANSWER PER GOVERNMENT AUDITOR, EXCHANGE GIVEN MD'S CP NUMBER. CONTACTED ON MD'S PERSONAL CELLPHONE, LEFT A MESSAGE. AWAITING FOR CALL BACK.
[2018-09-07] MEDS: INSULIN GLARGINE, 100 UNIT/ML CARTRIDGE SQ SCH (22:00)
[2018-09-07] MEDS: *INSULIN REGULAR(HUMULIN R)HUM 100 UNIT/ML VIAL SQ PRN (22:10)
--- NOTE | 2018-09-07 22:10 | NUR ---
accu check 209: blood sugar result is 209, 4 units of insulin given per slding scale. pt refusing for 60 units of lantus , only wants 4units, still waiting for md to call back.
[2018-09-07 22:17] VITALS: BP 149/78
--- NOTE | 2018-09-07 22:30 | NUR ---
rn notes: placed another call to md, regarding lantus. directs thru voicemail, left a message, awaiting call back.
--- NOTE | 2018-09-07 22:42 | NUR ---
refusal for lantus: per pt she's not comfortable getting the lantus, she believe its too high, sched lantus 60 units. pt claimed her blood sugar is high at home, mostly 300's-400's and that's the main reason why she's getting 60units lantus. informed pt were still waiting for md to call back regarding lantus administration, may be he can adjust dose based on latest blood sugar result. per pt she does not want to wait, will only get the regular insulin coverage. education provided to pt regarding importance of med compliance, improve glucose control, risk and benefits.
--- NOTE | 2018-09-07 23:00 | NUR ---
rn notes: pt refused scd at this time, stated she doesn't want it, educate pt regarding importance of scd pump to prevent blood clot formation, pt still refused.
--- NOTE | 2018-09-08 00:30 | NUR ---
rn notes: seen sleeping, appears comfortable, connected to spo2 monitor, remains on 2l oxygen via nc. respirations even and unlabored.
[2018-09-08 03:50] VITALS: BP 134/68
[2018-09-08] MEDS: HYDROMORPHONE 1 MG/1 ML DISP.SYRIN IV PRN ×4 (04:02→23:27)
--- NOTE | 2018-09-08 04:02 | NUR ---
prn dilaudid: pt c/o upper and lower back pain, requesting for pain medication, ps 09/28. prn dilaudid 1mg ivp administered to pt at this time, will continue to monitor and reassess pt.
[2018-09-08] MEDS: INSULIN REGULAR, HUMAN 100 UNIT/ML 3 ML VIAL SQ PRN ×2 (06:15→13:41)
--- NOTE | 2018-09-08 06:15 | NUR ---
accu check 156: blood sugar check 156, 2 units of insulin given per sliding scale. will continue to monitor pt for any s/s/ of hypoglycemia.
--- NOTE | 2018-09-08 06:47 | NUR ---
rn closing notes: pt in bed, remains a/o x4, on 2l oxygen via nc respiration even and unlabored. iv access remains patent and flushing well, on hl. pt connected to pulse oximetry spo2 95%, hr 66. dressing remains c/d/i. vs remains stable, needs attended. safety precautions for fall remains engaged, call light in reach, will endorse to day rn for continuity of care.
[2018-09-08] MEDS: BLOOD SUGAR DIAGNOSTIC 1 EACH STRIP VI SCH ×4 (06:50→21:51)
[2018-09-08 06:51] LABS: BASOPHILS % (AUTO) 0.6 % (0.0-2.0); EOSINOPHILS % (AUTO) 0.2 % (0.0-6.0); HEMATOCRIT 35 % (33-45); HEMOGLOBIN 12.1 g/dL (11.5-14.8); LYMPHOCYTES # (AUTO) 1.4 /CMM (0.8-4.8); LYMPHOCYTES % (AUTO) 20.7 % (20.0-44.0); MEAN CORPUSCULAR HGB CONC 35 g/dl (31.0-36.0); MEAN CORPUSCULAR VOLUME 86 fL (82-100); MONOCYTES # (AUTO) 0.8 /CMM (0.1-1.30); MONOCYTES % (AUTO) 11.7 % (2.0-12.0); NEUTROPHILS # (AUTO) 4.4 /CMM (1.8-8.9); NEUTROPHILS % (AUTO) 66.8 % (43.0-81.0); PLATELET COUNT (AUTO) 209 /CMM (150-450); RED BLOOD CELL COUNT(AUTO) 4.08 MIL/uL (4.0-5.2); WHITE BLOOD COUNT (AUTO) 6.6 K/uL (4.3-11.0)
[2018-09-08 07:06] LABS: ALBUMIN 3.3 g/dL (3.4-5.0); BILIRUBIN,TOTAL 0.7 mg/dL (0.2-1.0); CALCIUM, SERUM 8.9 mg/dL (8.5-10.1); CREATININE 0.5 mg/dL (0.6-1.3); POTASSIUM 3.4 mmol/L (3.5-5.1); TOTAL PROTEIN, SERUM 6.8 g/dL (6.4-8.2)
--- NOTE | 2018-09-08 07:56 | NUR ---
M/S RN NOTES PATIENT AWAKE, LYING IN BED, NO RESPIRATORY DISTRESS, NO C/O PAIN AT THIS TIME. SKIN WARM TO TOUCH. PATIENT'S DRESSING DRY AND INTACT. IV SL ON THE RFA #20G, INTACT AND PATENT, NO REDNESS, NO INFILTRATION NOTED. PATIENT'S NEEDS ATTENDED. BED ON LOWEST LOCKED POSITION, CALL LIGHT WITHIN REACH. WILL CONTINUE TO MONITOR.
[2018-09-08 08:00] VITALS: BP 143/71
[2018-09-08] MEDS: DOCUSATE SODIUM 250 MG CAPSULE PO SCH (08:22)
[2018-09-08] MEDS: PANTOPRAZOLE 40 MG TABLET.DR PO SCH (08:22)
[2018-09-08] MEDS: HYDROCHLOROTHIAZIDE 25 MG TABLET PO SCH (08:23)
[2018-09-08] MEDS: METOPROLOL TARTRATE 50 MG TABLET PO SCH ×2 (08:23→20:37)
[2018-09-08] MEDS: LISINOPRIL (20MG) 20 MG TABLET PO SCH (08:23)
[2018-09-08] MEDS: CALCITONIN,SALMON,SYNTHETIC 3.7 ML SPRAY.PUMP NS SCH (09:37)
--- NOTE | 2018-09-08 10:41 | NUR ---
M/S RN NOTES SPOKE TO DR. LIM REGARDING PT'S TRANSFER TO REHAB, DR. VASILE [facility] FOR PT. PATIENT SAID YES TO BE TRANSFERRED THERE. SPOKE TO EDWIN FROM [facility] IN REGARDS TO DISCHARGE PLANNING.
[2018-09-08] MEDS: POTASSIUM CHLORIDE 20 MEQ TAB.PRT.SR PO SCH (11:30)
--- NOTE | 2018-09-08 14:15 | NUR ---
M/S RN NOTES SPOKE TO FAMILY THAT CASE MANAGEMENT IS WAITING FOR A ROOM AT [facility]. A DIRECTOR OF COUNSELING FROM [facility] WILL TALK TO PATIENT REGARDING TRANSFER PER EDWIN FROM CASE MANAGEMENT. FAMILY AWARE AND REQUESTING IF PATIENT CAN HAVE A PRIVATE ROOM, ENDORSED TO EDWIN.
[2018-09-08] MEDS: SOD FERRIC GLUC 125 MG in IV NS 0.9% 100 ML IV SCH (15:10)
[2018-09-08 16:00] VITALS: BP 119/66
[2018-09-08] MEDS: *INSULIN REGULAR(HUMULIN R)HUM 100 UNIT/ML VIAL SQ PRN ×2 (18:26→21:55)
--- NOTE | 2018-09-08 19:11 | NUR ---
SOLUTION MANAGER NOTES PATIENT STILL AT CT SCAN, FAMILY WAITING IN ROOM. WILL ENDORSE TO ONCOMING NURSE FOR CONTINUITY OF CARE. Addendum: 09/08/18 at 1923 by KATHIE RUEDA RN ABOVE NOTES FOR DIFFERENT PATIENT
--- NOTE | 2018-09-08 19:30 | NUR ---
RN MS OPENING NOTES RECEIVED PATIENT IN BED AWAKE, ALERT AND ORIENTED X4, VERBALLY RESPONSIVE, ABLE TO MAKE NEEDS KNOWN. BREATHING EVEN AND UNLABORED. NO SOB NOTED. ON 2LPM VIA NC. DENIES ANY PAIN OR DISCOMFORT AT THE MOMENT. NO FACIAL GRIMACING. IV ON RIGHT FOREARM INTACT AND PATENT. SKIN DRY AND WARM TO TOUCH. AFEBRILE. DRESSING ON BACK AREA CLEAN DRY AND INTACT. ALL OTHER NEEDS ATTENDED TO. SAFETY MEASURES IN PLACE. CALL LIGHT WITHIN REACH. WILL CONTINUE TO MONITOR.
--- NOTE | 2018-09-08 19:56 | NUR ---
RN MS NOTES DR. LIM WAS PAGED DUE TO POTASSIUM LEVEL OF 3.4 AND MAGNESIUM LEVEL OF 1.7. DID NOT ANSWER AND VOICEMAIL IS FULL. WILL WAIT FOR CALL BACK.
--- NOTE | 2018-09-08 20:00 | NUR ---
RN MS NOTES PATIENT REFUSED SCDs ON. EXPLAINED RISKS AND BENEFITS BUT STILL REFUSED.
[2018-09-08 20:12] VITALS: BP 119/59
--- NOTE | 2018-09-08 20:43 | NUR ---
RN MS NOTES DR. LIM PAGED BACK WITH ORDERS: 1. MAGNESIUM 2GMS IV TONIGHT 2. MAGNESIUM 2GMS IV TOMORROW MORNING 3. CONTINUE THE KDUR 20MEQ PO DAILY. ALL ORDERS NOTED AND CARRIED OUT. SPOKE TO ONCALL PHARMACY AND SPOKE WITH NIKOLAS TO VERIFY THAT ORDERS WERE PUT IN CORRECTLY, PER NIKOLAS, THEY ARE PUT IN CORRECTLY. WILL CONTINUE TO MONITOR.
[2018-09-08] MEDS: Magnesium 1GM/D5W 100ML PREMIX 100 ML IV SCH ×2 (21:28→22:16)
--- NOTE | 2018-09-08 21:50 | NUR ---
RN MS NOTES PATIENT REFUSED LANTUS 60 UNITS. PER PATIENT, THAT'S TOO MUCH. EXPLAINED RISKS AND BENEFITS BUT STILL REFUSED. BS 168. AGREED FOR REGULAR INSULIN 3 UNIT COVERAGE. WILL CONTINUE TO MONITOR .
[2018-09-08] MEDS: INSULIN GLARGINE, 100 UNIT/ML CARTRIDGE SQ SCH (21:51)
[2018-09-09] MEDS: BLOOD SUGAR DIAGNOSTIC 1 EACH STRIP VI SCH ×4 (06:32→21:20)
[2018-09-09] MEDS: INSULIN REGULAR, HUMAN 100 UNIT/ML 3 ML VIAL SQ PRN ×2 (06:33→12:40)
--- NOTE | 2018-09-09 06:49 | NUR ---
RN MS CLOSING NOTES PATIENT RESTING IN BED. NO ACUTE CHANGES THROUGHOUT SHIFT. BREATHING EVEN AND UNLABORED. NO SOB NOTED. ON 2LPM VIA NC. NO PAIN OR DISCOMFORT AT THE MOMENT. IV ON RIGHT FOREARM INTACT AND PATENT. DRESSING ON BACK AREA CLEAN DRY AND INTACT. KEPT CLEAN DRY AND COMFORTABLE. ALL OTHER NEEDS ATTENDED TO. SAFETY MEASURES IN PLACE. CALL LIGHT WITHIN REACH. WILL ENDORSE TO ONCOMING NURSE FOR JEREMY.
--- NOTE | 2018-09-09 07:38 | NUR ---
MS RN OPENING NOTE PATIENT IN BED RESTING COMFORTABLY. PATIENT BREATHING ON OXYGEN NC 2L. PATIENT IN NO ACUTE DISTRESS. NO SOB NOTED. PATIENT BREATHING EVEN AND UNLABORED. PATIENT COMPLAINS OF NO PAIN AT THIS TIME. PATIENT SAFETY PRECAUTIONS IN PLACE. PATIENT BED IS LOCKED AND IN LOWEST POSITION. CALL LIGHT WITHIN REACH. WILL CONTINUE TO MONITOR.
[2018-09-09 08:00] VITALS: BP 135/64
[2018-09-09] MEDS: METOPROLOL TARTRATE 50 MG TABLET PO SCH ×2 (08:25→21:12)
[2018-09-09] MEDS: POTASSIUM CHLORIDE 20 MEQ TAB.PRT.SR PO SCH (08:25)
[2018-09-09] MEDS: PANTOPRAZOLE 40 MG TABLET.DR PO SCH (08:25)
[2018-09-09] MEDS: HYDROCHLOROTHIAZIDE 25 MG TABLET PO SCH (08:26)
[2018-09-09] MEDS: LISINOPRIL (20MG) 20 MG TABLET PO SCH (08:26)
[2018-09-09] MEDS: DOCUSATE SODIUM 250 MG CAPSULE PO SCH (08:27)
[2018-09-09] MEDS: Magnesium 1GM/D5W 100ML PREMIX 100 ML IV SCH ×2 (08:27→09:30)
[2018-09-09] MEDS: CALCITONIN,SALMON,SYNTHETIC 3.7 ML SPRAY.PUMP NS SCH (09:26)
[2018-09-09] MEDS ORDERED: NA PHOS,M-B/NA PHOS,DI-BA 1 EA ENEMA RC ONE (10:30)
[2018-09-09] MEDS: POLYETHYLENE GLYCOL 3350 17 GM POWD.PACK PO SCH ×2 (10:35→21:12)
[2018-09-09] MEDS: HYDROMORPHONE 1 MG/1 ML DISP.SYRIN IV PRN ×2 (10:35→18:33)
[2018-09-09] MEDS ORDERED: ONDANSETRON HCL/PF 4 MG/2 ML VIAL IV PRN (11:00)
--- NOTE | 2018-09-09 14:00 | NUR ---
MS RN NOTE PATIENT IN BED RESTING WITH FAMILY AT THE BEDSIDE. PATIENT REPORTS NO PAIN AT THIS TIME. PATIENT IN NO ACUTE DISTRESS. PER DR. CHARLES BUCKNER STRIPS TO REMAIN IN PLACE. WILL CONTINUE TO MONITOR.
[2018-09-09] MEDS: SOD FERRIC GLUC 125 MG in IV NS 0.9% 100 ML IV SCH (14:53)
[2018-09-09 16:00] VITALS: BP 110/60
[2018-09-09] MEDS: *INSULIN REGULAR(HUMULIN R)HUM 100 UNIT/ML VIAL SQ PRN ×2 (18:13→21:22)
--- NOTE | 2018-09-09 18:56 | NUR ---
MS RN CLOSING NOTE PATIENT IN BED RESTING, WITH FAMILY AT THE BEDSIDE. PATIENT BREATHING ON OXYGEN NC 2L SATURATING >95% SPO2. PATIENT BREATHING IS EVEN AND UNLABORED. PATIENT IN NO ACUTE DISTRESS. NO SOB NOTED. PATIENT VERBALIZED CONCERNS AND NEEDS. NEEDS AND CONCERNS ADDRESSED. PATIENT STERI STRIPS INTACT AND IN PLACE. PATIENT KEPT CLEAN, DRY, AND COMFORTABLE. PATIENT EXPRESSES NO PAIN AT THIS TIME. ALL NURSING NEEDS MET. PATIENT BED IS LOCKED AND IN LOWEST POSITION. CALL LIGHT WITHIN REACH. WILL ENDORSE CARE TO PM SHIFT FOR JEREMY.
[2018-09-09 20:19] VITALS: BP 125/64
--- NOTE | 2018-09-09 20:30 | NUR ---
MS RN NOTES: HANDED OFF PT TO TOM BARRETT. PT IN STABLE CONDITION AND IS IN BED RESTING COMFORTABLY.
--- NOTE | 2018-09-09 20:31 | NUR ---
MS RN OPENING NOTES Assume care of this patient. Asleep on bed, easily awaken. No complaints made at this time. On RA, no SOB/respiratory distress noted. Call light within easy reach. Will continue to monitor accordingly.
[2018-09-09] MEDS: INSULIN GLARGINE, 100 UNIT/ML CARTRIDGE SQ SCH (21:20)
[2018-09-10] MEDS: HYDROMORPHONE 1 MG/1 ML DISP.SYRIN IV PRN ×3 (00:47→13:15)
[2018-09-10] MEDS: IBUPROFEN 600 MG TABLET PO PRN (04:56)
--- NOTE | 2018-09-10 06:36 | NUR ---
MS RN CLOSING NOTES Patient intermittently asleep on bed, on RA, no SOB/respiratory distress noted. Medicated for pain, noted effective. Checked BS -174, patient wanted to received insulin when breakfast is served. All nursing needs attended. Kept clean, dry and comfortable. Endorsed to the next shift.
[2018-09-10] MEDS: INSULIN REGULAR, HUMAN 100 UNIT/ML 3 ML VIAL SQ PRN ×2 (07:03→12:00)
[2018-09-10] MEDS: BLOOD SUGAR DIAGNOSTIC 1 EACH STRIP VI SCH ×2 (07:06→11:54)
--- NOTE | 2018-09-10 07:40 | NUR ---
MS/RN - Assessment Patient is awake, A/O x 4, doing well POD#4 T10 kyphoplasty, denies pain, no apparent distress, stable on room air SpO2 94%. Saline lock on the RFA is patent, intact, with no signs of infiltration. No lab orders at this time. Fall and aspiration precautions maintained. Patient updated on plan of care. Awaiting acceptance from ARU. Will continue with current medical management.
[2018-09-10] MEDS: PANTOPRAZOLE 40 MG TABLET.DR PO SCH (07:56)
[2018-09-10 08:00] VITALS: BP 135/63
[2018-09-10] MEDS: HYDROCHLOROTHIAZIDE 25 MG TABLET PO SCH (08:02)
[2018-09-10] MEDS: METOPROLOL TARTRATE 50 MG TABLET PO SCH (08:02)
[2018-09-10] MEDS: DOCUSATE SODIUM 250 MG CAPSULE PO SCH (08:02)
[2018-09-10] MEDS: POTASSIUM CHLORIDE 20 MEQ TAB.PRT.SR PO SCH (08:02)
[2018-09-10] MEDS: LISINOPRIL (20MG) 20 MG TABLET PO SCH (08:02)
[2018-09-10] MEDS: CALCITONIN,SALMON,SYNTHETIC 3.7 ML SPRAY.PUMP NS SCH (08:17)
--- NOTE | 2018-09-10 11:30 | NUR ---
MS/RN - Notes Spoke with Gifty (daughter) and updated on pt's condition and dc plan for discharge today when ARU bed is available per Dr. Greenwood. Per daughter Gifty, she prefers [facility].
--- NOTE | 2018-09-10 14:25 | NUR ---
MS/RN - Discharge order Spoke with Dr. Greenwood with order to discharge pt to [facility] today.
[2018-09-10] MEDS ORDERED: POLY17PO4 PO (15:00)
[2018-09-10] MEDS ORDERED: HYDR25TA4 PO (15:00)
[2018-09-10] MEDS ORDERED: Blood Sugar Diagnostic VI (15:00)
[2018-09-10] MEDS ORDERED: CLON1PAT TD (15:00)
[2018-09-10] MEDS ORDERED: PANT40TA2 PO (15:00)
[2018-09-10] MEDS ORDERED: Calcitonin,Salmon,Synthetic NS (15:00)
[2018-09-10] MEDS ORDERED: MAGN400O6 PO (15:00)
[2018-09-10] MEDS ORDERED: *INS REG SQ (15:00)
[2018-09-10] MEDS ORDERED: ONDA4VIA23 PO (15:00)
[2018-09-10] MEDS ORDERED: LISI20TA61 PO (15:00)
[2018-09-10] MEDS ORDERED: METO50TA16 PO (15:00)
[2018-09-10] MEDS ORDERED: IBUP-1955 PO (15:00)
[2018-09-10] MEDS ORDERED: DOCU250C14 PO (15:00)
[2018-09-10] MEDS ORDERED: INSU100I30 SQ (15:00)
[2018-09-10 15:30] VITALS: BP 127/76
--- NOTE | 2018-09-10 17:10 | NUR ---
MS/RN - Discharge Patient discharged to [facility] in stable condition, remain afebrile, denies pain, no c/o nausea/vomiting, ambulatory with assist and walker, A/O x 4. Reviewed discharge instructions with Edyta at [facility] and she verbalized full understanding of all teachings including medications and follow-up care with Dr. Morel in 2 weeks. All belongings with patient and deny any missing items. Patient refused photos to be taken of skin, surgical incision with steri-strips in place with no signs of infection, no further skin breakdown noted. Saline lock removed on the RFA, with catheter tip intact, no redness, no swelling or excessive bleeding noted at the site. Discharge paperwork signed and copies were given per protocol. Patient was transported via ambulance, endorsed to EMT accordingly.
== END 2018-09-10 17:00 | DRG 517 ==
LOC: ER 11:34 → TELE 23:15 → MED 09-04 09:52
PROVIDERS: ADMIT Family Medicine; ATTEND Family Medicine
PROC: 0PS43ZZ Reposition Thoracic Vertebra, Percutaneous Approach (ICD-10-PCS; principal; 2018-09-06)
PROC: 0PU43JZ Supplement Thoracic Vertebra with Synthetic Substitute, Percutaneous Approach (ICD-10-PCS; 2018-09-06)
DX: M80.88XA Other osteoporosis with current pathological fracture, vertebra(e), initial encounter for fracture (principal); D63.8 Anemia in other chronic diseases classified elsewhere; I11.0 Hypertensive heart disease with heart failure; I50.9 Heart failure, unspecified; K59.00 Constipation, unspecified; Z86.73 Personal history of transient ischemic attack (TIA), and cerebral infarction without residual deficits; F02.80 Dementia in other diseases classified elsewhere, unspecified severity, without behavioral disturbance, psychotic disturbance, mood disturbance, and anxiety; G20 Parkinson's disease; I25.10 Atherosclerotic heart disease of native coronary artery without angina pectoris; E11.40 Type 2 diabetes mellitus with diabetic neuropathy, unspecified; E87.6 Hypokalemia; E78.5 Hyperlipidemia, unspecified; Z79.4 Long term (current) use of insulin; Z79.899 Other long term (current) drug therapy; R26.9 Unspecified abnormalities of gait and mobility; L80 Vitiligo; R13.10 Dysphagia, unspecified; Z79.82 Long term (current) use of aspirin; J44.9 Chronic obstructive pulmonary disease, unspecified; M47.9 Spondylosis, unspecified; K21.9 Gastro-esophageal reflux disease without esophagitis; F32.9 Major depressive disorder, single episode, unspecified; E27.8 Other specified disorders of adrenal gland; F17.200 Nicotine dependence, unspecified, uncomplicated; F43.10 Post-traumatic stress disorder, unspecified; R32 Unspecified urinary incontinence; M77.9 Enthesopathy, unspecified; I35.8 Other nonrheumatic aortic valve disorders; G47.9 Sleep disorder, unspecified
CPT/HCPCS: 36415; 71045-TC; 72070-TC; 72074-TC; 72100-TC; 72131-TC; 72146-TC; 72148-TC; 72170-TC; 76700-TC; 76856-TC; 80048-TC; 80053-TC; 80076-TC; 81000-TC; 82378; 82962-TC; 83540-TC; 83735-TC; 84100-TC; 84443-TC; 85025-TC; 87081-TC; 93970-TC; 97110-TC; 97116-TC; 97530-TC; A6402; G0378; J0330; J0690; J1170; J1815; J1885; J2250; J2405; J2704; J2710; J2765; J2916; J3475; J3490; J7030; J7040; J7050; J7060; Q9967